=== PATIENT | male | born 1960 | race Caucasian/White ===

== ENCOUNTER 2024-09-08 17:06 | Emergency (ER) | payer MEDICARE, SELFPAY ==
[2024-09-08] VITALS (19 sets, daily range): BP systolic 91–134; BP diastolic 60–79; PULSE 82–108; RESP 12–25; TEMP 36–36.8; O2SAT 91–101
--- NOTE | ~2024-09-08 | XR_ITS ---
XR chest 1V portable Ordering provider: Saida Espinoza APRN History: 64 years Male with . shortness of breath . Comparison: None. FINDINGS: MEDIASTINUM: The cardiac silhouette is not enlarged. Small sliding hiatus hernia. LUNGS: No infiltrates, effusions or pneumothorax. OTHER: No free air under the diaphragm. IMPRESSION: No acute cardiopulmonary pathology. Reviewed, dictated and finalized at location A.
--- NOTE | ~2024-09-08 | CT_ITS ---
Clinical Indication: Shortness of breath CT Scan of the Chest with Contrast: Technique: Contiguous sections were acquired throughout the chest after intravenous administration of 100 cc of Omnipaque 350. Dose reduction technique was used on this scan by utilizing automated expos ure control and iterative reconstruction technique. The dose-length product (DLP) was 379.22 mGy-cm. Findings: There is no evidence of any significant mediastinal, hilar or axillary lymphadenopathy. No definite l arge central pulmonary embolus. Timing of the bolus is suboptimal for evaluation for smaller, more di stal pulmonary emboli.. There is no evidence of aortic dissection or aneurysm. There is no evidence of pleural or pericardial effusion. 4 mm left basilar pulmonary nodule present (axial image 113). Additional 3 mm left lower lobe pulmona ry nodule present peripherally (axial image 103).. Moderate emphysema present. Images through the upper abdomen reveal moderate hiatal hernia. Left hepatic lobe cyst present. Impression: No large central pulmonary embolus. Suboptimal timing of contrast bolus limits evaluation for smaller , more distal pulmonary emboli. Subcentimeter pulmonary nodules, most likely benign. Consider 12 month follow-up exam for a high-risk patient. Moderate emphysema. Moderate hiatal hernia. Reviewed, dictated and finalized at location . Impression: No large central pulmonary embolus. Suboptimal timing of contrast bolus limits evaluation for smaller, more distal pulmonary emboli. Subcentimeter pulmonary nodules, most likely benign. Consider 12 month follow-u p exam for a high-risk patient. Moderate emphysema. Moderate hiatal hernia.
--- OUTSIDE RECORDS SUMMARY | 2024-09-08 17:08 | XMS_ITS | Referral Summary ---
Author Organization [facility] Address [address] [place] [address] Care Team Providers Care Bulldozer Mechanic Name Role Phone Deejay Styles MD Unavailable [phone] Encounters Date Type Department Care Team Description 07/05/2024 1:07 PM CDT - 07/06/2024 2:00 PM CDT Hospital Encounter [facility] [address] [place] [id number] Fantasma Burnett MD Wallace, MD Didier Swift, MD Mason Pierre Ahmad, MD Freilich, MD Glo Love, Dalila Flores MD Exacerbation of asthma, unspecified asthma severity, unspecified whether persistent (Primary Dx); Shortness of breath; Alcohol abuse; CRUMP (dyspnea on exertion); Mixed conductive and sensorineural hearing loss, bilateral Discharge Disposition: Discharge to home or self care from Last 3 Months Allergies Active Allergy Reactions Criticality Noted Date Comments Clindamycin Edema Reaction: SWELLING, Medications albuterol HFA (PROVENTIL HFA,VENTOLIN HFA,PROAIR HFA) 90 mcg/actuation inhaler Inhale 2 puffs every 4 (four) hours as needed for wheezing 1 each 1 07/06/2024 Active fluticasone furoate-vilante roL (BREO ELLIPTA) 200-25 mcg/dose diskus inhaler Inhale 1 puff daily for 3 days Rinse mouth with water after use. Do not swallow. 3 each 07/07/2024 Active buPROPion (WELLBUTRIN) 100 mg tablet Take 1 tablet (100 mg total) by mouth 2 (two) times a day 07/06/2024 07/07/19 26 Active Active Problems Problem Noted Date Diagnosed Date Exacerbation of asthma, unsp ecified asthma severity, unspecified whether persistent 07/05/2024 Assessment & Plan (07/06/2024 12:25 PM CDT): -2 weeks of progressive SOB iso 1.pt ran out of his inhalers, 2. continues to use vamping, 3. Triggering allergins in his new detention ( reports breathing worse since moving to new detention in March) -admitted for asthma exacerbation -was given nebs, started on steroids -pt reports breathing is back to baseline, C/w Breoellipta and steroids x 4 days -educated on vaping cessation -discussed need to follow up with PCP, referral to [facility] placed -ready for discharge Homelessness 03/05/2024 Assessment & Plan (03/05/2024 2:44 PM CYCLE SPECIALIST): SW helped provide resources for detention (see note on 03/04) Moderate protein-calorie malnutrition 03/03/2024 Dehydration 03/01/2024 Assessment & Plan (03/03/2024 4:59 PM CYCLE SPECIALIST): Pt with mild hyponatremia and AGMA related to lactic acidosis/starvation ketosis, expect from dehydration and etoh use. Resolved and now tolerating PO intake without issue. Suicidal ideation 03/01/2024 Assessment & Plan (03/05/2024 2:44 PM CYCLE SPECIALIST): Presented to [facility] with SI, has multiple thoughts of ending his life each day for the past several days, such as jumping in the river. Homeless for several years, most recently in a motel which he will be unable to stay at further now, also complicated by AUD. - Low utility for 1:1 sitter at this time, defer - continue low risk suicide precautions and elopement precautions however. - Psych consult - Initial plan for voluntary admission however stated given the conditional nature of his suicidality related to being homeless, patient would no longer be recommended for psych transfer - has provided resources for shelters including extended motel accomodations (see WHEEL WORKER note on 03/04) Alcohol abuse 03/01/2024 Assessment & Plan (03/05/2024 2:42 PM CYCLE SPECIALIST): Drinks 1/5 daily of vodka, which he reports ot have done for years. Presented with mild alcoholic ketosis, which resolved after IVF resuscitation by 03/02. No withdrawal sx hx, but he also reports he doesn't know the last time he hasn't had alcohol. Last drink 02/28. Denies any other substance use and UDS negative. CIWA since admission was 0 without any concerns for withdrawal, so on 03/02 CIWA orders discontinued. Patient tolerating PO intake, medically improved. - Discontinued CIWA 03/02 - Thiamine/Folate - HIV/HCV testing negative 03/01 - Seen by chemical dependency provided resources and sent referrals to residential treatments centers, [facility] and places for people, [facility] (See WHEEL WORKER notes on 03/04) CRUMP (dyspnea on exertion) 06/25/2023 Assessment & Plan (06/25/2023 4:48 PM CDT): His EKG today in clinic was NSR no acute changes. He does have ongoing CRUMP and a negative stress test in 2019. However, CRUMP could be his anginal equivalent, multiple risk factors for CAD, HTN, tobacco abuse vs COPD. Follow up with PCP for PFTS. ECHO to rue out any valvular reason for CRUMP-CMY- in light of his heavy ETOH abuse. Stress ECHO. Lipid profile. I asked that he check his BP at home, it was elevated in clinic today and follow up with his PCP. Follow up with Dr. Ellis in 3 months. Cholesteatoma of right ear 03/19/2023 Mixed conductive and sensorineural hearing loss, bilateral 03/19/2023 Impacted cerumen of right ear 03/19/2023 Asthma 03/27/2017 Assessment & Plan (03/01/2024 9:23 AM CYCLE SPECIALIST): Unclear hx, he is not sure either. Has been prescribe albuterol in past and symbicort - will resume prn albuterol, no respiratoy sx at this time Elevated liver enzymes 02/22/2017 Abnormal liver function tests 10/09/2016 Mixed hearing loss 06/12/2016 Assessment & Plan (03/01/2024 9:23 AM CYCLE SPECIALIST): Pt reports to have been near deaf entire life, he communicates via writing or a voice tyler effectively. Does not know sign language Social History Tobacco Use Types Packs/Day Years Used Date Smoking Tobacco: Former Smokeless Tobacco: Current Chew Tobacco Cessation:Ready to Q uit: Not Asked; Counseling Given: Not Answered AUDIT-C Answer Date Recorded Q1: How often do you have a drink containing alcohol? 4 or more times a week 08/09/2022 Q2: How many drinks containi ng alcohol do you have on a typical day when you are drinking? 5 or 6 Q3: How often do you have si x or more drinks on one occasion? Daily or almost daily 08/09/2022 Hunger Vital Sign Answer Date Recorded Within the past 12 months, y ou worried that your food would run out before you got the money to buy more. Often true 08/10/19 23 Within the past 12 months, t he food you bought just didn't last and you didn't have money to get more. Often true 08/09/2022 Personal Safety Answer Date Recorded Have you ever been in or are you currently in a harmful physical or emotional relationship or is someone making you feel afraid or unsafe? Denies 07/05/2024 Sex and Gender Information Value Date Recorded Sex Assigned at Not on file Legal Sex Male 2:58 AM CYCLE SPECIALIST Gender Identity Not on file Sexual Orientation Not on file Last Filed Vital Signs Vital Sign Reading Time Taken Comments Blood Pressure 128/85 07/06/2024 9:58 AM CDT Pulse 88 07/06/2024 9:58 AM CDT Temperature 36.4 C (97.5 F) 07/06/2024 9:58 AM CDT Respiratory Rate 18 07/06/2024 9:58 AM CDT Oxygen Saturation 99% 07/06/2024 9:58 AM CDT Inhaled Oxygen Concentration - - Weight 70.8 kg (156 lb 1.6 oz) 07/05/2024 10:03 PM CDT Height 177.8 cm (5' 10) 07/05/2024 10:58 PM CDT Body Mass Index 22.4 07/05/2024 10:03 PM CDT Plan of Treatment Not on file Procedures Procedure Name Priority Date/Time Associated Diagnosis Comments EGFR Routine 07/06/2024 5:46 AM CDT DIFFERENTIAL AUTO Routine 07/06/2024 5:4 6 AM CDT CBC WITH AUTO DIFFERENTIAL Routine 07/06/2024 5:46 AM CDT BASIC METABOLIC PANEL Routine 07/06/2024 5:46 AM CDT DRUGS OF ABUSE SCREEN, URINE WITH REFLEX CONFIRMATION Routine 07/06/2024 4:37 AM CDT TROPONIN I HIGH-SENSITIVITY 2-HOUR Timed 07/05/2024 3:33 PM CDT RESPIRATORY PATHOGEN PANEL STAT 07/05/2024 2:04 PM CDT XR CHEST PA LATERAL 2 VIEWS ED 07/05/2024 2:00 PM CDT ECG 12-LEAD Routine 07/05/2024 1:57 PM CDT EGFR STAT 07/05/2024 1:33 PM CDT DIFFERENTIAL AUTO STAT 07/05/2024 1: 33 PM CDT TROPONIN I HIGH-SENSITIVITY SERIES (BASELINE, 2HR, 4HR, 6HR) STAT 07/05/2024 1:33 PM CDT CBC WITH AUTO DIFFERENTIAL STAT 07/05/2024 1:33 PM CDT COMPREHENSIVE METABOLIC PANEL STAT 07/05/2024 1:33 PM CDT HEPATITIS C ANTIBODY Routine 03/01/2024 8:53 PM CYCLE SPECIALIST from Last 3 Months or Most Recently Relevant to Health Maintenance Results * eGFR (07/06/2024 5:46 AM CDT) Pathologist [facility] eGFR >90 >=60 mL/min/1. 73 m2 Comment: Interpretive Data Reference Interval Normal >/= 90 mL/min/1.73m2 Mildly decreased* 60 - 89 mL/min/1.73m2 Mildly to moderately decreased 45 - 59 mL/min/1.73m2 Moderately to severely decreased 30 - 44 mL/min/1.73m2 Severely decreased 15 - 29 mL/min/1.73m2 Kidney Failure < 15 mL/min/1.73m2 *Relative to young adult level Estimated glomerular filtration rate is determined by the 2020 CKD-EPI equation recommended by the National Kidney Foundation (A Unifying Approach to GFR Estimation: Recommendations of the NKF-ASK Task Force on Reassessing the Inclusion of Race in Diagnosing Kidney Disease, JASN 2020). The CKD-EPI equation should not be used for patients with unstable renal function and has not been validated in children and those over 70. Current interpretive data was last reviewed 2021. Blood 07/06/2024 5:46 AM CDT 07/06/2024 6:01 AM CDT us Sandra Cuevas MD LAB BLOOD ORDERABLES Final Resu lt [facility] Department [place] [address] * (ABNORMAL) Differential, auto (07/06/2024 5:46 AM CDT) Pathologist [facility] Neutrophil abs 11.2(H) 1.5 - 6.5 K/cumm Imm gran abs 0.1 0.0 - 0.1 K/cumm [facility] Lymphocyte abs 1.1 0.8 - 3.3 K/cumm [facility] Monocyte abs 0.9(H) 0.2 - 0.8 K/cumm [facility] Eosinophil abs 0.1 0.0 - 0.5 K/cumm [facility] Basophil abs 0.0 0.0 - 0.1 K/cumm [facility] Neutrophil pct 83.4 % [facility] Comment: Interpretive Data Percent cell count reference ranges are not reported, since discordance with absolute values may lead to misinterpretation of CBC data. Current Interpretive Data was last revised on 2017. Imm gran pct 0.6 % [facility] Comment: Interpretive Data Percent cell count reference ranges are not reported, since discordance with absolute values may lead to misinterpretation of CBC data. Current Interpretive Data was last revised on 2017. Lymphocyte pct 8.3 % [facility] Comment: Interpretive Data Percent cell count reference ranges are not reported, since discordance with absolute values may lead to misinterpretation of CBC data. Current Interpretive Data was last revised on 2017. Monocyte pct 6.7 % [facility] Comment: Interpretive Data Percent cell count reference ranges are not reported, since discordance with absolute values may lead to misinterpretation of CBC data. Current Interpretive Data was last revised on 2017. Eosinophil pct 0.7 % [facility] Comment: Interpretive Data Percent cell count reference ranges are not reported, since discordance with absolute values may lead to misinterpretation of CBC data. Current Interpretive Data was last revised on 2017. Basophil pct 0.3 % [facility] Comment: Interpretive Data Percent cell count reference ranges are not reported, since discordance with absolute values may lead to misinterpretation of CBC data. Current Interpretive Data was last revised on 2017. Blood 07/06/2024 5:46 AM CDT 07/06/2024 6:01 AM CDT us Sandra Cuevas MD LAB BLOOD ORDERABLES Final Resu lt [facility] Department [place] [address] * (ABNORMAL) CBC with auto differential (07/06/2024 5:46 AM CDT) WBC 13.4(H) 3.8 - 9.9 K/cumm Hgb 11.9(L) 13.0 - 17.5 g/dL [facility] Hct 35.0(L) 38.9 - 50.3 % [facility] Plt 338 150 - 400 K/cumm [facility] MPV 9.1 9.1 - 12.3 fL [facility] RBC 3.93(L) 4.30 - 5.80 M/cumm [facility] MCV 89.1 81.3 - 96.4 fL [facility] MCH 30.3 27.1 - 33.3 pg [facility] MCHC 34.0 32.3 - 35.7 g/dL [facility] RDW CV 14.2 11.1 - 14.9 % [facility] RDW SD 46.3 35.7 - 48.1 fL [facility] NRBC abs 0.00 0.00 - 0.01 K/cumm [facility] Blood 07/06/2024 5:46 AM CDT 07/06/2024 6:01 AM CDT us Sandra Cuevas MD LAB BLOOD ORDERABLES Final Resu lt [facility] Department [place] [address] * (ABNORMAL) Basic metabolic panel (07/06/2024 5:46 AM CDT) Sodium 140 135 - 145 mmol/L Potassium, pl 4.5 3.3 - 4.9 mmol/L [facility] Chloride 107 97 - 110 mmol/L [facility] CO2 24 22 - 32 mmol/L [facility] Anion gap 9 2 - 15 mmol/L [facility] BUN 12 6 - 25 mg/dL [facility] Creatinine 0.70(L) 0.80 - 1.30 mg/dL [facility] Glucose 143 70 - 199 mg/dL [facility] Comment: Interpretive Data Fasting glucose >/= 126 mg/dl is diagnostic for diabetes. Fasting is defined as no caloric intake for at least 8 hours. Fasting glucose between 100 mg/dl to 125 mg/dl is diagnostic of prediabetes. In a patient with classic symptoms of hyperglycemia or hyperglycemic crisis, a random glucose >/= 200 mg/dl is diagnostic for diabetes. In the absence of unequivocal hyperglycemia, results should be confirmed by repeat testing. The classification and Diagnosis of Diabetes Diabetes Care 2021; 46: S19-S40. Current interpretive data was last revised 2022. Calcium 8.9 8.5 - 10.3 mg/dL [facility] Blood 07/06/2024 5:46 AM CDT 07/06/2024 6:01 AM CDT us Sandra Cuevas MD LAB BLOOD ORDERABLES Final Resu lt [facility] Department [place] [address] * (ABNORMAL) Drugs of Abuse Screen, Urine with Reflex Confirmation (07/06/2024 4:37 AM CDT) Pathologist [facility] Amphetamine, ur Not Detected CutOff 500ng/mL Comment: Interpretive Data - Amphetamines: Samples containing greater than 500 ng/mL d-methamphetamine or other cross-reacting amphetamine compounds are reported as positive. Amphetamine immunoassays are subject to significant false positive rates due to cross-reactivity of non-amphetamine drugs. Confirmatory testing required for definitive results. Current Interpretive Data was last reviewed 2022. Barbiturates, ur Not Detected CutOff 200ng/mL [facility] Comment: Interpretive Data - Barbiturates: Samples containing greater than 200 ng/mL secobarbital or other cross-reacting barbiturate compounds are reported as positive. False positive and false negative results are possible. Confirmatory testing required for definitive results. Current Interpretive Data was last reviewed 2022. Benzodiazepines, ur Not Detected CutOff 100ng/mL [facility] Comment: Interpretive Data - Benzodiazepines: Samples containing greater than 100 ng/mL nordiazepam or other cross-reacting compounds are reported as positive. False positive and false negative results are possible. Confirmatory testing required for definitive results. Current Interpretive Data was last reviewed 2022. Cannabinoids, ur Screen Positive, presumptive (A) CutOff 50 ng/mL [facility] Comment: Interpretive Data - Cannabinoids: Samples containing greater than 50 ng/mL delta-9 THC -COOH or other cross- reacting compounds are reported as positive. False positive and false negative results are possible. Confirmatory testing required for definitive results. Current Interpretive Data was last reviewed 2022. Cocaine, ur Not Detected CutOff 150ng/mL [facility] Comment: Interpretive Data - Cocaine: Samples containing greater than 150 ng/mL benzoylecgonine or other cross- reacting compounds are reported as positive. False positive and false negative results are possible. Confirmatory testing required for definitive results. Current Interpretive Data was last reviewed 2022. Fentanyl, Ur Not Detected CutOff 5 ng/mL [facility] Comment: Interpretive Data - Fentanyl: Samples containing greater than 5 ng/mL norfentanyl, fentanyl, or other cross-reacting fentanyl compounds are reported as positive. False positive and false negative results are possible. Confirmatory testing required for definitive results. Current Interpretive Data was last reviewed 2023. Methadone, ur Not Detected CutOff 300ng/mL [facility] Comment: Interpretive Data - Methadone: Samples containing greater than 300 ng/mL d,l-methadone or other cross-reacting compounds are reported as positive. False positive and false negative results are possible. Confirmatory testing required for definitive results. Current Interpretive Data was last reviewed 2022. Opiates, ur Not Detected CutOff 300ng/mL [facility] Comment: Interpretive Data - Opiates: Samples containing greater than 300 ng/mL morphine or other cross-reacting compounds are reported as positive. False positive and false negative results are possible. Confirmatory testing required for definitive results. Current Interpretive Data was last reviewed 2022. Oxycodone, ur Not Detected CutOff 100ng/mL [facility] Comment: Interpretive Data - Oxycodone: Samples containing greater than 100 ng/mL oxycodone or other cross-reacting compounds are reported as positive. False positive and false negative results are possible. Confirmatory testing required for definitive results. Current Interpretive Data was last reviewed 2022. Phencyclidine, ur Not Detected CutOff 25 ng/mL [facility] Comment: Interpretive Data - Phencyclidine: Samples containing greater than 25 ng/mL phencyclidine or other cross-reacting compounds are reported as positive. False positive and false negative results are possible. Confirmatory testing required for definitive results. Current Interpretive Data was last reviewed 2022. Urine Creatinine 79 mg/dL [facility] Comment: Interpretive Data Urine Creatinine: < 10 mg/dL is extremely dilute = or > 10 but < 20 mg/dL is dilute = or > 20 mg/dL is normal Current Interpretive Data was last revised on 2017. Urine 07/06/2024 4:37 AM CDT 07/06/2024 4:50 AM CDT Narrative [facility] - 07/06/2024 5:21 AM CDT Drug of Abuse screening is performed by immunoassay for medical purposes only. This is not to be used for Pain Management purposes. If Detected, confirmation testing will be performed for Amphetamines, Cocaine, Fentanyl, Methadone, Opiates, Oxycodone or Phencyclidine. Sandra Cuevas MD LAB URINE ORDERABLES Final Resu lt Performing Organization Address [facility] Co de Phone Number [facility] Department [place] [address] * Troponin I high-sensitivity 2-hour (07/05/2024 3:33 PM CDT) Trop I hs <4 <=35 ng/L Comment: Interpretive Data For further hscTnI resources including the diagnostic algorithm and an aid in interpretation, copy and paste this link: https://bjhlab.testcatalog.org/show/[email or web address] Current Interpretive Data last revised 2019. Trop I hs delta 0 ng/L [facility] Trop I hs interp Insignificant [facility] Blood 07/05/2024 3:33 PM CDT 07/05/2024 3:43 PM CDT Zakiya Lopez MD LAB BLOOD ORDERABLES Fin al Result Performing Organization Address [facility]/ZIP Co de Phone Number [facility] Department [place] [address] * Respiratory pathogen panel Nasopharyngeal (07/05/2024 2:04 PM CDT) Pathologist [facility] Influenza A RNA Not Detected Not Detected Influenza B RNA Not Detected Not Detected [facility] RSV RNA Not Detected Not Detected [facility] COVID-19 RNA Not Detected Not Detected [facility] Coronavirus 229E RNA Not Detected Not Detected [facility] Coronavirus HKU1 RNA Not Detected Not Detected [facility] Coronavirus NL63 RNA Not Detected Not Detected [facility] Coronavirus OC43 RNA Not Detected Not Detected [facility] Adenovirus DNA Not Detected Not Detected [facility] Metapneumovirus RNA Not Detected Not Detected [facility] Rhinovirus/Enterov irus RNA Not Detected Not Detected [facility] Parainfluenza 1 RNA Not Detected Not Detected [facility] Parainfluenza 2 RNA Not Detected Not Detected [facility] Parainfluenza 3 RNA Not Detected Not Detected [facility] Parainfluenza 4 RNA Not Detected Not Detected [facility] B. pertussis DNA Not Detected Not Detected [facility] B. parapertussis DNA Not Detected Not Detected [facility] C. pneumoniae DNA Not Detected Not Detected [facility] M. pneumoniae DNA Not Detected Not Detected [facility] Nasopharyngeal 07/05/2024 2: 04 PM CDT 07/05/2024 2:12 PM CDT Narrative [facility] - 07/05/2024 3:43 PM CDT Is the Patient experiencing symptoms consistent with COVID?->Yes Surveillance testing for transplant patient?->No Interpretive Data The [employer] FilmArray Respiratory Panel (RP2.1) assay is a multiplexed real-time PCR based nucleic acid test capable of simultaneous qualitative detection and identification of multiple respiratory viral and bacterial nucleic acids, including SARS Coronavirus 2 (the causative agent of COVID-19). The following bacteria, viruses and virus subtypes can be identified using the FilmArray RP2.1 assay: Bordetella pertussis, Bordetella parapertussis, Chlamydia pneumoniae, Mycoplasma pneumoniae, Adenovirus, SARS Coronavirus 2, seasonal coronaviruses (Coronavirus HKU1, Coronavirus NL63, Coronavirus 229E, and Coronavirus OC43), Influenza A, Influenza A subtype H1, Influenza A subtype H3, Influenza A subtype 2009 H1, Influenza B, Metapneumovirus, Parainfluenza 1, Parainfluenza 2, Parainfluenza 3, Parainfluenza 4, RSV, Rhinovirus/Enterovirus. Due to the genetic similarity between human Rhinovirus and Enterovirus, the FilmArray RP2.1 assay cannot reliably differentiate them. Coronavirus OC43 may cross-react with some isolates of Coronavirus HKU1. A dual positive result may be due to cross-reactivity or may indicate a co- infection. The detection and identification of specific viral and bacterial nucleic acids from individuals exhibiting signs and symptoms of a respiratory infection aids in the diagnosis of respiratory infection if used in conjunction with other clinical and epidemiological information. The results of this test should not be used as the sole basis for diagnosis, treatment, or other management decisions. Negative results in the setting of a respiratory illness may be due to infection with pathogens that are not detected by this test. Positive results do not rule out infection/co-infection with other organisms. The agent(s) detected by the FilmArray RP2.1 may not be the definite cause of disease. Additional testing (lab, imaging, etc.) may be necessary when evaluating a patient with possible respiratory tract infection. The FilmArray RP2.1 assay has FDA clearance for testing of AUTOMOTIVE MANUFACTURER swabs. The performance of additional specimen types has been assessed by the performing laboratory. The performance characteristics of this assay have been determined by [facility] Molecular Infectious Disease Laboratory. Current interpretive data was last revised on 22. Zakiya Lopez MD LAB MICROBIOLOGY - [facility] ORDERABLES Final Result [facility] Department [place] [address] * XR Chest PA Lateral 2 Views (07/05/2024 2:00 PM CDT) Anatomical Region Laterality Modality Body, Chest N/A Computed Radiogr aphy 07/05/2024 2:11 PM CDT Impressions 07/05/2024 2:15 PM CDT The current study is compared with the prior radiograph dated 01/21/2007 . Minimal bibasilar airspace opacities likely represent atelectasis. No focal pneumonic consolidation. No pleural effusion or pneumothorax. Cardiomediastinal silhouette is within normal limits. Moderate hiatal hernia with air-fluid level is noted. Dictated by: Calos Faria MD The radiology attending physician has personally reviewed this study, and had reviewed and/or edited this written report and agrees with it. Electronically signed by: Amarjit Roger MD, PHD Narrative 07/05/2024 2:15 PM CDT EXAMINATION: 2 view chest radiograph Procedure Note Amarjit Roger MD PhD - 07/05/2024 EXAMINATION: 2 view chest radiograph IMPRESSION: The current study is compared with the prior radiograph dated 01/21/2007 . Minimal bibasilar airspace opacities likely represent atelectasis. No focal pneumonic consolidation. No pleural effusion or pneumothorax. Cardiomediastinal silhouette is within normal limits. Moderate hiatal hernia with air-fluid level is noted. Dictated by: Calos Faria MD The radiology attending physician has personally reviewed this study, and had reviewed and/or edited this written report and agrees with it. Electronically signed by: Amarjit Roger MD, PHD us Fantasma Burnett MD IMG XR PROCEDURES Final Re sult * ECG 12-LEAD (07/05/2024 1:57 PM CDT) Narrative [facility] - 07/05/2024 1:57 PM CDT Fantasma Burnett MD 07/05/2024 1:57 PM ECG 12 lead Date/Time: 07/05/2024 1:57 PM Performed by: Fantasma Burnett MD Authorized by: Fantasma Burnett MD Rate: ECG rate: 106 ECG rate assessment: tachycardic Rhythm: Rhythm: sinus rhythm Ectopy: Ectopy: none QRS: QRS axis: Left QRS intervals: Normal Conduction: Conduction: normal ST segments: ST segments: Normal T waves: T waves: non-specific Previous ECG: Previous ECG: Compared to current Similarity: No change Interpretation: Interpretation: No acute injury pattern Recommended Follow-up: Recommended follow up: further workup in the ED Procedure Note Fantasma Burnett MD - 07/05/2024 1:57 PM CDT Procedure ECG 12 lead Date/Time: 07/05/2024 1:57 PM Performed by: Fantasma Burnett MD Authorized by: Fantasma Burnett MD Rate: ECG rate: 106 ECG rate assessment: tachycardic Rhythm: Rhythm: sinus rhythm Ectopy: Ectopy: none QRS: QRS axis: Left QRS intervals: Normal Conduction: Conduction: normal ST segments: ST segments: Normal T waves: T waves: non-specific Previous ECG: Previous ECG: Compared to current Similarity: No change Interpretation: Interpretation: No acute injury pattern Recommended Follow-up: Recommended follow up: further workup in the ED Fantasma Burnett MD 07/05/24 [id number] us Fantasma Burnett MD ECG ORDERABLES Final Resu lt [facility] * Troponin I high-sensitivity series (baseline, 2hr, 4hr, 6hr) (07/05/2024 1:33 PM CDT) [facility] Trop I hs <4 <=35 ng/L Comment: Interpretive Data For further hscTnI resources including the diagnostic algorithm and an aid in interpretation, copy and paste this link: [email or web address] Current Interpretive Data last revised 2019. Blood 07/05/2024 1:33 PM CDT 07/05/2024 1:37 PM CDT us Fantasma Burnett MD LAB BLOOD ORDERABLES Final Result [facility] [place] [address] * eGFR (07/05/2024 1:33 PM CDT) [facility] eGFR >90 >=60 mL/min/1. 73 m2 Comment: Interpretive Data Reference Interval Normal >/= 90 mL/min/1.73m2 Mildly decreased* 60 - 89 mL/min/1.73m2 Mildly to moderately decreased 45 - 59 mL/min/1.73m2 Moderately to severely decreased 30 - 44 mL/min/1.73m2 Severely decreased 15 - 29 mL/min/1.73m2 Kidney Failure < 15 mL/min/1.73m2 *Relative to young adult level Estimated glomerular filtration rate is determined by the 2020 CKD-EPI equation recommended by the National Kid[employer] (A Unifying Approach to GFR Estimation: Recommendations of the NKF-ASK Task Force on Reassessing the Inclusion of Race in Diagnosing Kidney Disease, JASN 2020). The CKD-EPI equation should not be used for patients with unstable renal function and has not been validated in children and those over 70. Current interpretive data was last reviewed 2021. Blood 07/05/2024 1:33 PM CDT 07/05/2024 1:39 PM CDT us Zakiya Lopez MD LAB BLOOD ORDERABLES Fin al Result [facility] Department of Laboratories [place], [place] [id number] * (ABNORMAL) Differential, auto (07/05/2024 1:33 PM CDT) Neutrophil abs 5.4 1.5 - 6.5 K/cumm Imm gran abs 0.0 0.0 - 0.1 K/cumm [facility] Lymphocyte abs 1.4 0.8 - 3.3 K/cumm [facility] Monocyte abs 0.7 0.2 - 0.8 K/cumm [facility] Eosinophil abs 1.2(H) 0.0 - 0.5 K/cumm [facility] Basophil abs 0.1 0.0 - 0.1 K/cumm [facility] Neutrophil pct 60.6 % [facility] Comment: Interpretive Data Percent cell count reference ranges are not reported, since discordance with absolute values may lead to misinterpretation of CBC data. Current Interpretive Data was last revised on 2017. Imm gran pct 0.5 % [facility] Comment: Interpretive Data Percent cell count reference ranges are not reported, since discordance with absolute values may lead to misinterpretation of CBC data. Current Interpretive Data was last revised on 2017. Lymphocyte pct 15.9 % [facility] Comment: Interpretive Data Percent cell count reference ranges are not reported, since discordance with absolute values may lead to misinterpretation of CBC data. Current Interpretive Data was last revised on 2017. Monocyte pct 8.2 % [facility] Comment: Interpretive Data Percent cell count reference ranges are not reported, since discordance with absolute values may lead to misinterpretation of CBC data. Current Interpretive Data was last revised on 2017. Eosinophil pct 13.7 % [facility] Comment: Interpretive Data Percent cell count reference ranges are not reported, since discordance with absolute values may lead to misinterpretation of CBC data. Current Interpretive Data was last revised on 2017. Basophil pct 1.1 % [facility] Comment: Interpretive Data Percent cell count reference ranges are not reported, since discordance with absolute values may lead to misinterpretation of CBC data. Current Interpretive Data was last revised on 2017. Blood 07/05/2024 1:33 PM CDT 07/05/2024 1:37 PM CDT us Fantasma Burnett MD LAB BLOOD ORDERABLES Final Result Performing Organization Address City/State/[facility] Co de Phone Number [facility] Department [place] [address] * CBC with auto differential (07/05/2024 1:33 PM CDT) WBC 8.9 3.8 - 9.9 K/cumm Hgb 13.8 13.0 - 17.5 g/dL [facility] Hct 40.5 38.9 - 50.3 % [facility] Plt 370 150 - 400 K/cumm [facility] MPV 9.1 9.1 - 12.3 fL [facility] RBC 4.53 4.30 - 5.80 M/cumm [facility] MCV 89.4 81.3 - 96.4 fL [facility] MCH 30.5 27.1 - 33.3 pg [facility] MCHC 34.1 32.3 - 35.7 g/dL [facility] RDW CV 13.9 11.1 - 14.9 % [facility] RDW SD 45.7 35.7 - 48.1 fL [facility] NRBC abs 0.00 0.00 - 0.01 K/cumm [facility] Blood 07/05/2024 1:33 PM CDT 07/05/2024 1:37 PM CDT us Fantasma Burnett MD LAB BLOOD ORDERABLES Final Result [facility] Department [place] [address] * (ABNORMAL) Comprehensive metabolic panel (07/05/2024 1:33 PM CDT) Pathologist [facility] Sodium 141 135 - 145 mmol/L Potassium, pl 4.3 3.3 - 4.9 mmol/L [facility] Chloride 102 97 - 110 mmol/L [facility] CO2 26 22 - 32 mmol/L [facility] Anion gap 13 2 - 15 mmol/L [facility] BUN 8 6 - 25 mg/dL [facility] Creatinine 0.70(L) 0.80 - 1.30 mg/dL [facility] Glucose 130 70 - 199 mg/dL [facility] Comment: Interpretive Data Fasting glucose >/= 126 mg/dl is diagnostic for diabetes. Fasting is defined as no caloric intake for at least 8 hours. Fasting glucose between 100 mg/dl to 125 mg/dl is diagnostic of prediabetes. In a patient with classic symptoms of hyperglycemia or hyperglycemic crisis, a random glucose >/= 200 mg/dl is diagnostic for diabetes. In the absence of unequivocal hyperglycemia, results should be confirmed by repeat testing. The classification and Diagnosis of Diabetes Diabetes Care 2021; 46: S19-S40. Current interpretive data was last revised 2022. Calcium 9.3 8.5 - 10.3 mg/dL [facility] Bilirubin, total 0.2 0.1 - 1.2 mg/dL [facility] Protein, pl 7.8 6.5 - 8.5 g/dL [facility] Albumin 4.0 3.5 - 5.0 g/dL [facility] Alk phos 115 40 - 130 Units/L [facility] ALT 10 7 - 55 Units/L [facility] AST 23 10 - 50 Units/L [facility] Blood 07/05/2024 1:33 PM CDT 07/05/2024 1:37 PM CDT us Fantasma Burnett MD LAB BLOOD ORDERABLES Final Result [facility] Department [place] [address] * Hepatitis C antibody Blood (03/01/2024 8:53 PM CY[facility] SPECIALIST) Hep C Ab Nonreactive Nonreactive Comment:Antibodies to HCV no t detected. Does NOT exclude the possibility of recent exposure to HCV. Current interpretive data was last revised on 21 Blood 03/01/2024 8:53 PM [facility]CLE SPECIALIST 03/01/2024 9:16 PM [facility]IST us Garcia Limon MD LAB MICROBIOLOGY - GENERAL ORD ERABLES Final Result [facility] Department of Laboratories [place], [place] [id number] from Last 3 Months or Most Recently Relevant to Health Maintenance Insurance [place] Advance Directives For more information, please contact: [phone] * Full Code (Latest Code Status on File) Date Activated Date Inactivated Comments 07/05/2024 10:03 PM 07/06/2024 6:11 PM * Full Code Date Activated Date Inactivated Comments 03/01/2024 9:16 AM 03/06/2024 10:04 AM 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
--- OUTSIDE RECORDS SUMMARY | 2024-09-08 17:09 | XMS_ITS | Clinical Summary ---
Author Organization [facility] al Address [address] [place] [address] Care Team Providers Care Rotor Blade Installer Name Role Phone Deejay Styles MD Unavailable [phone] Allergies Active Allergy Reactions Criticality Noted Date [...] vamping, 3. Triggering allergins in his new senior care ( reports breathing worse since moving to [facility] in March) -admitted for asthma exacerbation -was given nebs, started on steroids -pt reports breathing is back to baseline, C/w Breoellipta and steroids x 4 days -educated on vaping cessation -discussed need to follow up with PCP, referral to [facility] placed -ready for discharge Homelessness 03/05/2024 Assessment & Plan (03/05/2024 2:44 PM ULTRASOUND SUPERVISOR): SW helped provide resources for senior care (see note on 03/04) Moderate protein-calorie malnutrition 03/03/2024 Dehydration 03/01/2024 Assessment & Plan (03/03/2024 4:59 PM ULTRASOUND SUPERVISOR): Pt with mild hyponatremia and AGMA related to lactic acidosis/starvation ketosis, expect from dehydration and etoh use. Resolved and now tolerating PO intake without issue. Suicidal ideation 03/01/2024 Assessment & Plan (03/05/2024 2:44 PM ULTRASOUND SUPERVISOR): Presented to Ed with SI, has multiple [...] for shelters including extended motel accomodations (see SHEET ROCK FINISHER note on 03/04) Alcohol abuse 03/01/2024 Assessment & Plan (03/05/2024 2:42 PM ULTRASOUND SUPERVISOR): Drinks 1/5 daily of vodka, which he [...] negative 03/01 - Seen by chemical dependency SW provided resources and sent referrals to residential treatments centers, [facility] and places for people, [facility] (See SHE[employer] ROCK FINISHER notes on 03/04) CRUMP (dyspnea on exertion) [...] 03/27/2017 Assessment & Plan (03/01/2024 9:23 AM ULTRASOUND SUPERVISOR): Unclear hx, he is not sure either. 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 Does not know sign language Encounters Date Type Department Care Team Description 07/05/2024 1:07 PM CDT - 07/06/2024 2:00 PM CDT Hospital Encounter [facility] [address] [place] [address] Fantasma Burnett MD Wallace, MD Didier Swift, MD Mason Pierre Ahmad, MD Freilich, MD Glo Love, Dalila Flores MD Exacerbation of asthma, unspecified asthma severity, unspecified whether persistent (Primary Dx); Shortness of breath; Alcohol abuse; CRUMP (dyspnea on exertion); Mixed conductive and sensorineural hearing loss, bilateral Discharge Disposition: Discharge to home or self care from Last 3 Months Surgical History Surgery Date Site/Laterality Comments MI APPENDECTOMY Appendectomy - (Added by TW Conv) Medical History Medical History Date Comments Allergy status to unspecifie d drugs, medicaments and biological substances status History of seasonal allergie s - (Added by TW Conv) Personal history of other di seases of the respiratory system History of asthma - (Added b y TW Conv) Anxiety disorder Anxiety - (Adde d by TW Conv) Other injury of unspecified body region, initial encounter Bone fracture - (Added by TW Conv) Personal history of other di seases of the respiratory system History of chronic obstructi ve lung disease - (Added by TW Conv) Personal history of other me ntal and behavioral disorders History of depression - (Add ed by TW Conv) Family History Medical History Relation Name Comments Diabetes Father Family history of diabetes mellitus - (Added by TW Conv) Diabetes Mother Family history of diabetes mellitus - (Added by TW Conv) Breast cancer Other Family history of malignant neoplasm of breast - (Added by TW Conv) Deafness Other Family history of deafness or hearing loss - (Added by TW Conv) Relation Name Status Comments Father Mother Other Social History Tobacco Use Types Packs/Day Years [...] on file Legal Sex Male 2:58 AM ULTRASOUND SUPERVISOR Gender Identity Not on file Sexual Orientation Not on file Obstetrics History Last Filed Vital Signs Vital Sign Reading [...] 07/05/2024 10:03 PM CDT Plan of Treatment Health Maintenance Due Date Last Done Comments Colon Cancer Screening-Colonoscopy 1961 Depression Screening 1961 Prostate Cancer Screening-PSA 1961 Hepatitis B Screening 1979 Regular Well Visit/Exam 18-64 1979 Zoster Vaccine (1 of 2) 2011 Pneumococcal vaccine <65 (2 of 2 - PCV) 03/03/2017 03/03/2016, 01/01/2014 DTaP/Tdap/Td Vaccine (2 - Td or Tdap) 01/02/2024 01/01/2014 Influenza Vaccine (Season Ended) 2024 04/06/2023, 04/05/2018, 03/03/2016, Additional history exists Hepatitis C Screening Completed 03/01/2024 Procedures Procedure Name Priority Date/Time Associated Diagnosis [...] 1:33 PM CDT DIFFERENTIAL AUTO STAT 07/05/2024 1:3 3 PM CDT TROPONIN I HIGH-SENSITIVITY SERIES (BASELINE, 2HR, 4HR, 6HR) STAT 07/05/2024 1:33 PM CDT CBC WITH AUTO DIFFERENTIAL STAT 07/05/2024 1:33 PM CDT COMPREHENSIVE METABOLIC PANEL STAT 07/05/2024 1:33 PM CDT HEPATITIS C ANTIBODY Routine 03/01/2024 8:53 PM ULTRASOUND SUPERVISOR from Last 3 Months or Most Recently Relevant to Health Maintenance Results * eGFR (07/06/2024 5:46 AM CDT) eGFR >90 >=60 mL/min/1. 73 m2 Comment: [...] of Race in Diagnosing Kidney Disease, JASN 202). The CKD-EPI equation should not be used for patients with unstable renal function and has not been validated in children and those over 70. Current interpretive data was last reviewed 2021. Blood 07/06/2024 5:46 AM CDT 07/06/2024 6:01 AM CDT us Sandra Cuevas MD LAB BLOOD ORDERABLES Final Resu lt [facility] [place] [address] * (ABNORMAL) Differential, auto (07/06/2024 5:46 AM CDT) Neutrophil abs 11.2(H) 1.5 - 6.5 K/cumm Imm gran abs 0.1 0.0 - 0.1 K/cumm [facility] Lymphocyte abs 1.1 0.8 - 3.3 K/cumm [facility] Monocyte abs 0.9(H) 0.2 - 0.8 K/cumm [facility] Eosinophil abs 0.1 0.0 - 0.5 K/cumm [facility] Basophil abs 0.0 0.0 - 0.1 K/cumm [facility] Neutrophil pct 83.4 % [facility] Comment: Interpretive Data Percent cell count reference ranges are not reported, since discordance with absolute values may lead to misinterpretation of CBC data. Current Interpretive Data was last revised on 2017. Imm gran pct 0.6 % [facility] Comment: Interpretive Data Percent cell count reference ranges are not reported, since discordance with absolute values may lead to misinterpretation of CBC data. Current Interpretive Data was last revised on 2017. Lymphocyte pct 8.3 % [facility] Comment: Interpretive Data Percent cell count reference ranges are not reported, since discordance with absolute values may lead to misinterpretation of CBC data. Current Interpretive Data was last revised on 2017. Monocyte pct 6.7 % [facility] Comment: Interpretive Data Percent cell count reference ranges are not reported, since discordance with absolute values may lead to misinterpretation of CBC data. Current Interpretive Data was last revised on 2017. Eosinophil pct 0.7 % [facility] Comment: Interpretive Data Percent cell count reference ranges are not reported, since discordance with absolute values may lead to misinterpretation of CBC data. Current Interpretive Data was last revised on 2017. Basophil pct 0.3 % [facility] Comment: Interpretive Data Percent cell count reference ranges are not reported, since discordance with absolute values may lead to misinterpretation of CBC data. Current Interpretive Data was last revised on 2017. Blood 07/06/2024 5:46 AM CDT 07/06/2024 6:01 AM CDT us Sandra Cuevas MD LAB BLOOD ORDERABLES Final Resu lt [facility] [place] [address] * (ABNORMAL) CBC with auto differential (07/06/2024 5:46 AM CDT) WBC 13.4(H) 3.8 - 9.9 K/cumm Hgb 11.9(L) 13.0 - 17.5 g/dL [facility] Hct 35.0(L) 38.9 - 50.3 % [facility] Plt 338 150 - 400 K/cumm [facility] MPV 9.1 9.1 - 12.3 fL [facility] RBC 3.93(L) 4.30 - 5.80 M/cumm [facility] MCV 89.1 81.3 - 96.4 fL [facility] MCH 30.3 27.1 - 33.3 pg [facility] MCHC 34.0 32.3 - 35.7 g/dL [facility] RDW CV 14.2 11.1 - 14.9 % [facility] RDW SD 46.3 35.7 - 48.1 fL [facility] NRBC abs 0.00 0.00 - 0.01 K/cumm [facility] Blood 07/06/2024 5:46 AM CDT 07/06/2024 6:01 AM CDT us Sandra Cuevas MD LAB BLOOD ORDERABLES Final Resu lt [facility] [place] [address] * (ABNORMAL) Basic metabolic panel (07/06/2024 5:46 AM CDT) Sodium 140 135 - 145 mmol/L Potassium, pl 4.5 3.3 - 4.9 mmol/L [facility] Chloride 107 97 - 110 mmol/L [facility] CO2 24 22 - 32 mmol/L [facility] Anion gap 9 2 - 15 mmol/L [facility] BUN 12 6 - 25 mg/dL [facility] Creatinine 0.70(L) 0.80 - 1.30 mg/dL [facility] Glucose 143 70 - 199 mg/dL [facility] Comment: Interpretive Data Fasting glucose >/= 126 [...] classification and Diagnosis of Diabetes Diabetes Care 202; 46: S19-S40. Current interpretive data was last revised 2022. Calcium 8.9 8.5 - 10.3 mg/dL [facility] Blood 07/06/2024 5:46 AM CDT 07/06/2024 6:01 AM CDT Sandra Cuevas MD LAB BLOOD ORDERABLES Final Resu lt [facility] Department [place] [address] * (ABNORMAL) Drugs of Abuse Screen, Urine with Reflex Confirmation (07/06/2024 4:37 AM CDT) Amphetamine, ur Not Detected CutOff 500ng/mL Comment: Interpretive Data - Amphetamines: Samples containing greater than 500 ng/mL d-methamphetamine or other cross-reacting amphetamine compounds are reported as positive. Amphetamine immunoassays are subject to significant false positive rates due to cross-reactivity of non-amphetamine drugs. Confirmatory testing required for definitive results. Current Interpretive Data was last reviewed 2022. Barbiturates, ur Not Detected CutOff 200ng/mL [facility] Comment: Interpretive Data - Barbiturates: Samples containing greater than 200 ng/mL secobarbital or other cross-reacting barbiturate compounds are reported as positive. False positive and false negative results are possible. Confirmatory testing required for definitive results. Current Interpretive Data was last reviewed 2022. Benzodiazepines, ur Not Detected CutOff 100ng/mL [facility] Comment: Interpretive Data - Benzodiazepines: Samples containing greater than 100 ng/mL nordiazepam or other cross-reacting compounds are reported as positive. False positive and false negative results are possible. Confirmatory testing required for definitive results. Current Interpretive Data was last reviewed 2022. Cannabinoids, ur Screen Positive, presumptive (A) CutOff 50 ng/mL [facility] Comment: Interpretive Data - Cannabinoids: Samples containing greater than 50 ng/mL delta-9 THC -COOH or other cross- reacting compounds are reported as positive. False positive and false negative results are possible. Confirmatory testing required for definitive results. Current Interpretive Data was last reviewed 2022. Cocaine, ur Not Detected CutOff 150ng/mL [facility] Comment: Interpretive Data - Cocaine: Samples containing greater than 150 ng/mL benzoylecgonine or other cross- reacting compounds are reported as positive. False positive and false negative results are possible. Confirmatory testing required for definitive results. Current Interpretive Data was last reviewed 2022. Fentanyl, Ur Not Detected CutOff 5 ng/mL [facility] Comment: Interpretive Data - Fentanyl: Samples containing greater than 5 ng/mL norfentanyl, fentanyl, or other cross-reacting fentanyl compounds are reported as positive. False positive and false negative results are possible. Confirmatory testing required for definitive results. Current Interpretive Data was last reviewed 2023. Methadone, ur Not Detected CutOff 300ng/mL [facility] Comment: Interpretive Data - Methadone: Samples containing greater than 300 ng/mL d,l-methadone or other cross-reacting compounds are reported as positive. False positive and false negative results are possible. Confirmatory testing required for definitive results. Current Interpretive Data was last reviewed 2022. Opiates, ur Not Detected CutOff 300ng/mL [facility] Comment: Interpretive Data - Opiates: Samples containing greater than 300 ng/mL morphine or other cross-reacting compounds are reported as positive. False positive and false negative results are possible. Confirmatory testing required for definitive results. Current Interpretive Data was last reviewed 2022. Oxycodone, ur Not Detected CutOff 100ng/mL [facility] Comment: Interpretive Data - Oxycodone: Samples containing greater than 100 ng/mL oxycodone or other cross-reacting compounds are reported as positive. False positive and false negative results are possible. Confirmatory testing required for definitive results. Current Interpretive Data was last reviewed 2022. Phencyclidine, ur Not Detected CutOff 25 ng/mL [facility] Comment: Interpretive Data - Phencyclidine: Samples containing greater than 25 ng/mL phencyclidine or other cross-reacting compounds are reported as positive. False positive and false negative results are possible. Confirmatory testing required for definitive results. Current Interpretive Data was last reviewed 2022. Urine Creatinine 79 mg/dL [facility] Comment: Interpretive Data Urine Creatinine: < 10 mg/dL is extremely dilute = or > 10 but < 20 mg/dL is dilute = or > 20 mg/dL is normal Current Interpretive Data was last revised on 2017. Urine 07/06/2024 4:37 AM CDT 07/06/2024 4:50 AM CDT Narrative [facility] - 07/06/2024 5:21 AM CDT Drug of Abuse screening is performed by immunoassay for medical purposes only. This is not to be used for Pain Management purposes. If Detected, confirmation testing will be performed for Amphetamines, Cocaine, Fentanyl, Methadone, Opiates, Oxycodone or Phencyclidine. Sandra Cuevas MD LAB URINE ORDERABLES Final Resu lt Performing Organization Address [facility] de Phone Number [facility] [place] [place] [address] * Troponin I high-sensitivity 2-hour (07/05/2024 3:33 PM CDT) [facility] Trop I hs <4 <=35 ng/L Comment: Interpretive Data For further [facility] resources including the diagnostic algorithm and an aid in interpretation, copy and paste this link: [email or web address]/[email or web address] Current Interpretive Data last revised 2019. Trop I hs delta 0 ng/L [facility] Trop I hs interp Insignificant [facility] Blood 07/05/2024 3:33 PM CDT 07/05/2024 3:43 PM CDT Result [facility] Zakiya Lopez MD LAB BLOOD ORDERABLES Fin al Result Performing Organization Address [facility] de Phone Number [facility] [place] [address] * Respiratory pathogen panel Nasopharyngeal (07/05/2024 2:04 PM CDT) [facility] Influenza A RNA Not Detected Not Detected Influenza B RNA Not Detected Not Detected [facility] RSV RNA Not Detected Not Detected [facility] COVID-19 RNA Not Detected Not Detected [facility] Coronavirus 229E RNA Not Detected Not Detected [facility] Coronavirus HKU1 RNA Not Detected Not Detected [facility] Coronavirus NL63 RNA Not Detected Not Detected [facility] Coronavirus OC43 RNA Not Detected Not Detected [facility] Adenovirus DNA Not Detected Not Detected [facility] Metapneumovirus RNA Not Detected Not Detected [facility] Rhinovirus/Enterov irus RNA Not Detected Not Detected [facility] Parainfluenza 1 RNA Not Detected Not Detected [facility] Parainfluenza 2 RNA Not Detected Not Detected [facility] Parainfluenza 3 RNA Not Detected Not Detected [facility] Parainfluenza 4 RNA Not Detected Not Detected [facility] B. pertussis DNA Not Detected Not Detected [facility] B. parapertussis DNA Not Detected Not Detected [facility] C. pneumoniae DNA Not Detected Not Detected [facility] M. pneumoniae DNA Not Detected Not Detected [facility] Nasopharyngeal 07/05/2024 2: 04 PM CDT 07/05/2024 2:12 PM CDT Narrative [facility] - 07/05/2024 3:43 PM CDT Is the Patient experiencing symptoms consistent with COVID?->Yes Surveillance testing for transplant patient?->No Interpretive Data The Giraffic FilmArray Respiratory Panel (RP2.1) assay is a [...] assay has FDA clearance for testing of BRAILLE TRANSCRIBER swabs. The performance of additional specimen types has been assessed by the performing laboratory. The performance characteristics of this assay have been determined by [facility] Molecular Infectious Disease Laboratory. Current interpretive data was last revised on 22. Zakiya Lopez MD LAB MICROBIOLOGY - [facility] ORDERABLES Final Result [facility] [place] [address] * XR Chest PA Lateral 2 Views [...] 12-LEAD (07/05/2024 1:57 PM CDT) Narrative [facility] - 07/05/2024 1:57 PM CDT Fantasma Burnett [...] in the ED Fantasma Burnett MD 07/05/24 1357 us Fantasma Burnett MD ECG ORDERABLES Final Resu lt Performing Organization Address [facility] Co de Phone Number [facility] * Troponin I high-sensitivity series (baseline, 2hr, 4hr, 6hr) (07/05/2024 1:33 PM CDT) Pathologist [facility] Trop I hs <4 <=35 ng/L Comment: Interpretive Data For further hscTnI resources including the diagnostic algorithm and an aid in interpretation, copy and paste this link: [email or web address]/[email or web address] Current Interpretive Data last revised 2019. Blood 07/05/2024 1:33 PM CDT 07/05/2024 1:37 PM CDT us Fantasma Burnett MD LAB BLOOD ORDERABLES Final Result Performing Organization Address [facility] Co de Phone Number [facility] [place] [address] * eGFR (07/05/2024 1:33 PM CDT) Pathologist [facility] eGFR >90 >=60 mL/min/1. 73 m2 [...] of Race in Diagnosing Kidney Disease, JASN 202). The CKD-EPI equation should not be used for patients with unstable renal function and has not been validated in children and those over 70. Current interpretive data was last reviewed 2021. Blood 07/05/2024 1:33 PM CDT 07/05/2024 1:39 PM CDT us Zakiya Lopez MD LAB BLOOD ORDERABLES Fin al Result [facility] [place] [address] * (ABNORMAL) Differential, auto (07/05/2024 1:33 PM CDT) Neutrophil abs 5.4 1.5 - 6.5 K/cumm Imm gran abs 0.0 0.0 - 0.1 K/cumm [facility] Lymphocyte abs 1.4 0.8 - 3.3 K/cumm [facility] Monocyte abs 0.7 0.2 - 0.8 K/cumm [facility] Eosinophil abs 1.2(H) 0.0 - 0.5 K/cumm [facility] Basophil abs 0.1 0.0 - 0.1 K/cumm [facility] Neutrophil pct 60.6 % [facility] Comment: Interpretive Data Percent cell count reference ranges are not reported, since discordance with absolute values may lead to misinterpretation of CBC data. Current Interpretive Data was last revised on 2017. Imm gran pct 0.5 % [facility] Comment: Interpretive Data Percent cell count reference ranges are not reported, since discordance with absolute values may lead to misinterpretation of CBC data. Current Interpretive Data was last revised on 2017. Lymphocyte pct 15.9 % [facility] Comment: Interpretive Data Percent cell count reference ranges are not reported, since discordance with absolute values may lead to misinterpretation of CBC data. Current Interpretive Data was last revised on 2017. Monocyte pct 8.2 % [facility] Comment: Interpretive Data Percent cell count reference ranges are not reported, since discordance with absolute values may lead to misinterpretation of CBC data. Current Interpretive Data was last revised on 2017. Eosinophil pct 13.7 % [facility] Comment: Interpretive Data Percent cell count reference ranges are not reported, since discordance with absolute values may lead to misinterpretation of CBC data. Current Interpretive Data was last revised on 2017. Basophil pct 1.1 % [facility] Comment: Interpretive Data Percent cell count reference ranges are not reported, since discordance with absolute values may lead to misinterpretation of CBC data. Current Interpretive Data was last revised on 2017. Blood 07/05/2024 1:33 PM CDT 07/05/2024 1:37 PM CDT Fantasma Burnett MD LAB BLOOD ORDERABLES Final Result [facility] [place] [address] * CBC with auto differential (07/05/2024 1:33 PM CDT) WBC 8.9 3.8 - 9.9 K/cumm Hgb 13.8 13.0 - 17.5 g/dL [facility] Hct 40.5 38.9 - 50.3 % [facility] Plt 370 150 - 400 K/cumm [facility] MPV 9.1 9.1 - 12.3 fL [facility] RBC 4.53 4.30 - 5.80 M/cumm [facility] MCV 89.4 81.3 - 96.4 fL [facility] MCH 30.5 27.1 - 33.3 pg [facility] MCHC 34.1 32.3 - 35.7 g/dL [facility] RDW CV 13.9 11.1 - 14.9 % [facility] RDW SD 45.7 35.7 - 48.1 fL [facility] NRBC abs 0.00 0.00 - 0.01 K/cumm [facility] Blood 07/05/2024 1:33 PM CDT 07/05/2024 1:37 PM CDT us Fantasma Burnett MD LAB BLOOD ORDERABLES Final Result [facility] [place] [address] * (ABNORMAL) Comprehensive metabolic panel (07/05/2024 1:33 PM CDT) Sodium 141 135 - 145 mmol/L Potassium, pl 4.3 3.3 - 4.9 mmol/L [facility] Chloride 102 97 - 110 mmol/L [facility] [facility] CO2 26 22 - 32 mmol/L [facility] Anion gap 13 2 - 15 mmol/L [facility] BUN 8 6 - 25 mg/dL [facility] Creatinine 0.70(L) 0.80 - 1.30 mg/dL [facility] Glucose 130 70 - 199 mg/dL [facility] Comment: Interpretive Data Fasting glucose >/= 126 [...] 2022. Calcium 9.3 8.5 - 10.3 mg/dL [facility] Bilirubin, total 0.2 0.1 - 1.2 mg/dL [facility] Protein, pl 7.8 6.5 - 8.5 g/dL [facility] Albumin 4.0 3.5 - 5.0 g/dL [facility] Alk phos 115 40 - 130 Units/L [facility] ALT 10 7 - 55 Units/L [facility] AST 23 10 - 50 Units/L [facility] Blood 07/05/2024 1:33 PM CDT 07/05/2024 1:37 PM CDT us Fantasma Burnett MD LAB BLOOD ORDERABLES Final Result Performing Organization Address [facility] Co de Phone Number [facility] Department [place] [address] * Hepatitis C antibody Blood (03/01/2024 8:53 PM ULTRASOUND SUPERVISOR) Hep C Ab Nonreactive Nonreactive Comment:Antibodies to HCV no t detected. Does NOT exclude the possibility of recent exposure to HCV. Current interpretive data was last revised on 21 Blood 03/01/2024 8:53 PM ULTRASOUND SUPERVISOR 03/01/2024 9:16 PM ULTRASOUND SUPERVISOR us Garcia Limon MD LAB MICROBIOLOGY - GENERAL ORD ERABLES Final Result Performing Organization Address [facility] Co de Phone Number [facility] Department [place] [address] from Last 3 Months or Most Recently Relevant to Health Maintenance Insurance [place] Advance Directives For more information, please contact: [phone] * Full Code (Latest Code Status on File) Date Activated Date Inactivated Comments 07/05/2024 10:03 PM 07/06/2024 6:11 PM * Full Code Date Activated Date Inactivated Comments 03/01/2024 9:16 AM 03/06/2024 10:04 AM Care Teams Rotor Blade Installer Relationship Specialty Start Date End Date Deejay Styles MD [address] [place] [address] Referring Physician Internal Medicine 07/02/23
--- OUTSIDE RECORDS SUMMARY | 2024-09-08 17:09 | XMS_ITS | Encounter Summary ---
Author Organization [facility] Healthcare Address [address] [place] [address] Care Team Providers Care Orthotist/Prosthetist Name Role Phone Asad Torres MD Primary Care Provider [phone] Asad Gaines MD Primary Care Provider Deejay Styles MD Unavailable [phone] Reason for Visit * Reason Onset Date Comments READY TO SCHEDULED 05/11/2023 Encounter Details Date Type Department Care Team (Late st Contact Info) Description 05/11/2023 Telephone [facility] Specialty Services [address] [place] [address] Miscellaneous, Not In File READY TO SCHEDULED Social History Tobacco Use Types Packs/Day Years Used Date Smoking Tobacco: Former Smokeless Tobacco: Current Chew AUDIT-C Answer Date Recorded Q1: How often [...] true 08/09/2022 Personal Safety Answer Date Recorded Getting School Help Needed Denies 05/11 Sex and Gender Information Value Date Recorded Sex Assigned at Not on file Legal 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 Gender Identity Not on file Sexual Orientation Not on file documented as of this encounter Plan of Treatment Not on file documented as of this encounter Visit Diagnoses Not on filedocumented in this encounter Additional Health Concerns Infection Onset Date Last Indicated Resolved Time COVID: Suspected 07/05/2024 07/05/2024 07/05/2024 3:44 PM CDT documented as of this encounter Care Teams Orthotist/Prosthetist Relationship Specialty Start Date End Date Asad Torres MD PCP - General 04/03/17 06/07/23 Asad Gaines MD PCP - General Family Medicine 06/08/23 06/17/23 Deejay Styles MD [address] [place] [address] Referring Physician Internal Medicine 07/02/23 documented as of this encounter
--- OUTSIDE RECORDS SUMMARY | 2024-09-08 17:09 | XMS_ITS | Continuity of Care Document ---
Author Organization [facility] Address [address] [place] [address] Phone Care Team Providers Care Supervisor Carding Name Role Phone Deejay Styles MD Unavailable Unavailable Allergies, Adverse Reactions, Alerts Substance Reaction Status Criticality clindamycin Swelling Active No Information Medications Medication Instructions Dosage Effective Dates (start - stop) Status Comments Symbicort 160 mcg-4.5 mcg/actuation HFA aerosol inhaler INHALE 2 PUFFS BY MOUTH TWICE DAILY IN THE MORNING AND IN THE EVENING - Active Ventolin HFA 90 mcg/actuation aerosol inhaler inhale 2 puff by inhalation route every 4 - 6 hours as needed 180 MCG - Active bupropion HCl SR 100 mg tablet,12 hr sustained-release TAKE 1 TABLET BY ORAL ROUTE 2 TIMES EVERY DAY. - Active cetirizine 10 mg tablet take 1 tablet by oral route every day 10 MG - Active cyanocobalamin (vit B-12) 1,000 mcg tablet take 1 tab PO daily; may give 500mcg daily if 1000mcg not available - Active may substitute with 500 mcg if 1000 mcg not available folic acid 1 mg tablet take 1 tablet by oral route every day 1 MG - Active thiamine HCl (vitamin B1) 100 mg tablet take 1 by Oral route every day 1 - Active Vitamin D3 50 mcg (2,000 unit) tablet take 1 cap PO every day - Active Procedures Procedure Date BEHAVIORAL HEALTH OUTREACH SERVICE (PLAN OPAL APPROACH TO REACH A TARGETED BEHAVIORAL HEALTH COUNSELING AND THERAPY , PER 15 MINUTES Alcohol and/or drug services; case manag ement BEHAVIORAL HEALTH COUNSELING AND THERAPY , PER 15 MINUTES BEHAVIORAL HEALTH COUNSELING AND THERAPY , PER 15 MINUTES BEHAVIORAL HEALTH PREVENTION EDUCATION S ERVICE (DELIVERY OF SERVICES WITH [facility] WARMHAND[facility] 5/>MIN OFFICE/OUTPATIENT VISIT, EST BEHAVIORAL HEALTH COUNSELING AND THERAPY , PER 15 MINUTES BEHAVIORAL HEALTH COUNSELING AND THERAPY , PER 15 MINUTES BEHAVIORAL HEALTH PREVENTION EDUCATION S ERVICE (DELIVERY OF SERVICES WITH BEHAVIORAL HEALTH PREVENTION EDUCATION S ERVICE (DELIVERY OF SERVICES WITH BEHAVIORAL HEALTH COUNSELING AND THERAPY , PER 15 MINUTES Alcohol and/or drug services; case manag ement Therapeutic behavioral services, per 15 minutes OFFICE/OUTPATIENT VISIT, EST BEHAVIORAL HEALTH OUTREACH SERVICE (PLAN OPAL APPROACH TO REACH A TARGETED X-RAY EXAM CHEST 2 VIEWS X-RAY EXAM, SPINE, LUMBOSACRAL, MIN 4 EWS Therapeutic behavioral services, per 15 minutes ELECTROCARDIOGRAM, COMPLETE HEMOGLOBIN; GLYCOSYLATED (A1C) 24 GLUCOSE; QUANTITATIVE, BLOOD (EXCEPT ROBERT GENT STRIP) Urinalysis, Auto, w/o Scope PERIODIC COMPREHENSIVE PREVENTIVE MED RE E/M; ESTABLISHED PATIENT; 40-64 Alcohol and/or drug screening OFFICE/OUTPATIENT VISIT, EST DETERMINATION OF REFRACTIVE STATE Scan Computer Ophthal Diag Imag,Post Seg , Uni/Siddhartha, Retina OFFICE/OUTPATIENT VISIT, NEW COMPREHENSIVE HEARING TEST TYMPANOMETRY (IMPEDANCE TESTING) 2022 X-RAY EXAM CHEST 2 VIEWS Urinalysis, Auto, w/o Scope HEMOGLOBIN; GLYCOSYLATED (A1C) 23 GLUCOSE; QUANTITATIVE, BLOOD (EXCEPT ROBERT GENT STRIP) PERIODIC COMPREHENSIVE PREVENTIVE MED RE E/M; ESTABLISHED PATIENT; 40-64 OFFICE/OUTPATIENT VISIT, EST OFFICE OUTPT EST 25 MIN OFFICE/OUTPATIENT VISIT, EST OFFICE/OUTPATIENT VISIT, EST ELECTROCARDIOGRAM, COMPLETE Alcohol and/or drug screening 9 Urinalysis, Auto, w/o Scope HEMOGLOBIN; GLYCOSYLATED (A1C) 19 GLUCOSE; QUANTITATIVE, BLOOD (EXCEPT ROBERT GENT STRIP) OFFICE/OUTPATIENT VISIT, EST Limit Oral Evaluation- problem focused A Periapical Radiographic, first Image Jul Periapical Radiographic Image, ea addl A Extraction erupted tooth or exposed root Extraction erupted tooth or exposed root OFFICE OUTPT EST 25 MIN INFLUENZA VACCINE, AGE 4-18 YRS 017 DETERMINATION OF REFRACTIVE STATE OFFICE/OUTPATIENT VISIT, NEW OFFICE/OUTPATIENT VISIT, EST OFFICE OUTPT EST 25 MIN X-RAY EXAM, CHEST, FRONTAL/LATERAL, 2 EWS X-RAY EXAM, TIBIA/FIBULA, 2 VIEWS X-RAY EXAM, ANKLE, COMPLETE, MIN 3 VIEWS BLOOD COUNT; COMPLETE (CBC), AUTOMATED D IFF COMPRE METAB PANEL SEDIMENTATION RATE, ERYTHROCYTE; AUTOMAT ED URINALYSIS; MICROSCOPIC ONLY OFFICE OUTPT EST 25 MIN OFFICE/OUTPATIENT VISIT, EST OFFICE/OUTPATIENT VISIT, EST COMPREHENSIVE HEARING TEST TYMPANOMETRY (IMPEDANCE TESTING) 2016 Voided Encounter TYMPANOMETRY (IMPEDANCE TESTING) 2015 OFFICE OUTPT EST 25 MIN Administration of Influenza Virus Vaccin e OFFICE OUTPT EST 25 MIN Alcohol and/or drug screening 5 COMPRE METAB PANEL COLLECTION OF VENOUS BLOOD BY VENIPUNCTU RE OFFICE/OUTPATIENT VISIT, EST ALCOHOL AND/OR DRUG PREVENTI ON ENVIRONMENTAL SERVICE (BROAD RANGE OF EXTERNAL ALCOHOL AND/OR DRUG PREVENTI ON ENVIRONMENTAL SERVICE (BROAD RANGE OF EXTERNAL Voided Encounter Voided Encounter OFFICE/OUTPATIENT VISIT, EST Mental health services, not otherwise sp ecified Amalgam two surfaces Limit oral eval problem focused 014 Periapical Radiographic, first Image Mar Mental health services, not otherwise sp ecified Surgical extr erupted tooth Periapical Radiographic, first Image Feb Periapical Radiographic, first Image Jan Extraction erupted tooth or exposed root OFFICE O/P EST 5 MIN OFFICE/OUTPATIENT VISIT, EST Comprehensve oral evaluation Dental Bitewings Radiographic, Four Imag es Oral hygiene instruction Debridement, Full Mouth X-RAY EXAM, CHEST, FRONTAL/LATERAL, 2 EWS COLLECTION OF VENOUS BLOOD BY VENIPUNCTU RE Immun admin-adult or WO counseling - fir st vaccine/toxoid INFLUENZA VACCINE, AGE 3YRS+ Immun admin-adult or WO counseling - fir st vaccine/toxoid Pneumococcal polysaccharide vaccine, 23- valent (Pneumo-Vax 23) to age 2+ Immun admin-adult or WO counseling - fir st vaccine/toxoid TDAP VACCINE 7 YR + IM OFFICE/OUTPATIENT VISIT, NEW Extraction erupted tooth or exposed root Periapical Radiographic, first Image Dec Periodic oral evaluation Extraction erupted tooth or exposed root Limit oral eval problem focused 014 Periapical Radiographic, first Image Nov Incision & drainage of soft tissue absce ss Limit oral eval problem focused 012 HEPATITIS A VACCINE, ADULT DOSAGE, FOR I NTRAMUSCULAR USE TDAP VACCINE 7 YR + IM COLLECTION OF VENOUS BLOOD BY VENIPUNCTU RE OFFICE OUTPT EST 25 MIN COLLECTION OF VENOUS BLOOD BY VENIPUNCTU RE Periapical first film Limit oral eval problem focused 010 Extraction erupted tooth or exposed root HOME VST EST PT LOW TO MOD SEVERITY Advance Directives Directive Yes / No Effective Date File Name No Information Encounters Encounter Description Practice Location Reason(s) For Visit Diagnoses Date Provider Providers Copied on Encounter [facility], [address], [place], [place], [address] , tel: [phone] [facility] No Information 5 Stephani Villalba. [address], [place], [place], [address], . tel:[phone] [facility], [address], [place], [place], [address] , tel: [phone] T [facility] No Information 4 Pelon Martinez. [address], [place], [place], [address], . tel:[phone] [facility], [address], [place], [place], [address] , tel: [phone] [facility] No Information 4 Management Case. [address], [place], [place], [address], . tel:[phone] [facility], [address], [place], [place], [address] , tel: [phone] Det[facility] No Information 4 Management [facility]. [address], [place], [place], [address], . tel:[phone] [facility], [address], [place], [place], [address] , tel: [phone] Detention No Information 4 Management [facility]. [address], [place], [place], [address], [place]. tel:[phone] [facility], [address], [place], [place], [address] [place] [address] , [place] tel: [phone] Det[facility] No Information 4 Management [facility]. [address], [place], [address] [place] [address], [place]. tel:[phone] [facility], [address], [place], [place], [address] , [place] tel: [phone] Det[facility] No Information 4 Management Case. [address], [place], [address] [place] [address], [place]. tel:[phone] [facility] 5/>MIN [facility], [address], [place], [place], [address] , [place] tel: [phone] [facility] Major depressive disorder, single episode, unspecifiedS uicidal ideations 4 Pelon Martinez. [address], [place], [place], [address], [place]. 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 [address], [place], [place], [address], [place]. tel:[phone] Referring Provider: Deejay Styles, [address], [place], [address]. tel:[phone] [facility], [address], [place], [place], [address] , [place] tel: [phone] Det[facility] No Information 4 Management [facility]. [address], [place], [place], [address], [place]. tel:[phone] [facility], [address], [place], [place], [address] , [place] tel:[phone] Detention No Information Dec-0 4 Management Case. [address], [place], [address] [place] [address], [place]. tel:[phone] [facility], [address], [place], [place], [address] , tel:[phone] Detention No Information Dec-0 4 Management Case. [address], [place], [address] [place] [address], [place]. tel:[phone] [facility], [address], [place], [address] [place] [address] , tel: [phone] Detention No Information Dec-0 4 Management Case. [address], [place], [address] [place] [address], [place]. tel:[phone] [facility], [address], [place], [address] [place] [address] , [place] tel:[phone] Detention No Information Mar-0 4 Management Case. [address], [place], [address] [place] [address], [place]. tel:[phone] [facility], [address], [place], [place], [address] , [place] tel: [phone] Detention No Information 4 Management Case. [address], [place], [address] [place] [address], [place]. tel:[phone] Consulting Provider: Case Management, [address], [place], [address]. tel:[phone] [facility], [address], [place], [place], [address] , [place] tel:[phone] [facility] No Information Jun-0 4 Pelon Martinez. [address], [place], [address] [place] [address], [place]. tel:[phone] OFFICE/OUTPATI ENT VISIT, EST [facility], [address], [place], [place], [address] , tel: [phone] [facility] discussion of the labs (chief complaint) ScoliosisArt hropathy 4 Stephani Villalba. [address], [place], [address] [place] [address], . tel:[phone] Referring Provider: Deejay Styles, [address], [place], [address] [place] [address]. tel:[phone] [facility], [address], [place], [address] [place] [address] , tel: [phone] [facility] No Information 4 Pelon Martinez. [address], [place], [address] [place] [address], . tel:[phone] [facility], [address], [place], [address] [place] [address] , tel: [phone] [facility] No Information 4 Stephani Villalba. [address], [place], [address] [place] [address], . tel:[phone] Referring Provider: Deejay Styles, [address], [place], [address] [place] [address]. tel:[phone] [facility], [address], [place], [address] [place] [address] , tel: [phone] [facility] No Information 4 Pelon Martinez. [address], [place], [address] [place] [address], . tel:[phone] PERIODIC COMPREHENSIVE PREVENTIVE MED REE/M; ESTABLISHED PATIENT; 40-64 [facility], [address], [place], [address] [place] [address] , tel:[phone] [facility] assessment (chief complaint) Encounter for adult annual physical exam w/ abnormal findingsAsth maMixed conductive and sensorineura l hearing loss, bilateralEnc ounter for screening for other disorderMajo r depressive disorder, single episode, unspecifiedS tressAnxiety Tobacco useLumbagoEn counter for screening for malignant neoplasm of colonAbnorma l ECG 4 Stephani Villalba. [address], [place], [place], [address], . tel:[phone] Referring Provider: Deejay Styles, [address], [place], [address]. tel:[phone] OFFICE/OUTPATI ENT VISIT, NEW [facility], [address], [place], [place], [address] , [place] tel:[phone] [facility] blurry vision (chief complaint)bl urry vision (chief complaint) Hypermetropi a, bilateralPre sbyopiaOther age-related cataractCent ral serous chorioretino landon, left eyeNutrition al deficiency, unspecified 3 Shruti Cisneros. [address], [place], [place], [address], . tel:[phone] Referring Provider: Amelia Bahena, [address], [place], [address]. 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 [address], [place], [place], [address], [place]. tel:[phone] Referring Provider: Deejay Styles, [address], [place], [address]. tel:[phone] PERIODIC COMPREHENSIVE PREVENTIVE MED REE/M; ESTABLISHED PATIENT; 40-64 [facility], [address], [place], [place], [address] , [place] tel:[phone] [facility] s/p [facility] 2 months ago (chief complaint) AsthmaCatherine Hope for adult annual physical exam w/ abnormal findingsEnco unter for screening for other disorderHear ing lossMixed conductive and sensorineura l hearing loss, bilateralAbn ormal results of liver function studiesEncou nter for screening for malignant neoplasm of colon 3 Stephani Villalba. [address], [place], [place], [address], . tel:[phone] Referring Provider: Deejay Styles, [address], [place], [address]. tel:[phone] OFFICE OUTPT EST 25 MIN [facility], [address], [place], [place], [address] , [place] tel: [phone] [facility] visit 07/05/22 for COPD (chief complaint) AsthmaAllerg ic rhinitisEnco unter for immunization 3 No Information OFFICE/OUTPATI ENT VISIT, EST [facility], [address], [place], [place], [address] , [place] tel: [phone] [facility] discussion (chief complaint) AnxietyEncou nter for screening, unspecified 0 Stephani Villalba. [address], [place], [place], [address], [place]. tel:[phone] Referring Provider: Deejay Styles, [address], [place], [address]. tel:[phone] OFFICE/OUTPATI ENT VISIT, EST [facility], [address], [place], [place], [address] , [place] tel: [phone] [facility] abnormal EKG WITH CHEST PAIN (chief complaint)DS E (chief complaint)Ca rdiovascular Review (chief complaint) Chest pain 9 No Information OFFICE/OUTPATI ENT VISIT, EST [facility], [address], [place], [place], [address] , [place] tel: [phone] [facility] assessment (chief complaint) Body mass index (BMI) 22.0-22.9, adultEncount er for adult annual physical exam w/ abnormal findingsEnco unter for screening for malignant neoplasm of colonAnxiety Hearing lossAsthmaCh est painAbnormal ECGEncounter for screening for other disorder 9 Stephani Villalba. [address], [place], [place], [address], . tel:[phone] Referring Provider: Deejay Styles, [address], [place], [address]. 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 [address], [place], [place], [address], [place]. tel:[phone] Referring Provider: Deejay Styles, [address], [place], [address]. tel:[phone] OFFICE/OUTPATI ENT VISIT, NEW [facility], [address], [place], [place], [address] , [place] tel: [phone] [facility] flashes of light (chief complaint)fl ashes of light (chief complaint) Hypermetropi a, bilateralReg ular astigmatism, left eyePresbyopi aNutritional deficiency 7 Moriah Alejandre. [address], [place], [place], [address], [place]. tel:[phone] Referring Provider: Hill Major, [address], [place], [address]. tel:[phone] OFFICE/OUTPATI ENT VISIT, EST [facility], [address], [place], [place], [address] , tel: [phone] [facility] discussion of labs (chief complaint) Abnormal results of liver function studies 7 Stephani Villalba. [address], [place], [place], [address], [place]. tel:[phone] Referring Provider: Deejay Styles, [address], [place], [address]. tel:[phone] OFFICE OUTPT EST 25 MIN [facility], [address], [place], [place], [address] , [place] tel:[phone] [facility] left leg infection/tr auma (chief complaint) Cellulitis of left leg Stephani Villalba. [address], [place], [place], [address], [place]. tel:[phone] Referring Provider: Deejay Styles, [address], [place], [address]. tel:[phone] OFFICE OUTPT EST 25 MIN [facility], [address], [place], [place], [address] , [place] tel: [phone] [facility] s/p [facility] (chief complaint) Unspecified open wound, left lower leg, sequelaCellu litisPain in left ankle and joints of left foot 7 Stephani Villalba. [address], [place], [place], [address], [place]. tel:[phone] Referring Provider: Deejay Styles [address], [place], [address]. tel:[phone] OFFICE/OUTPATI ENT VISIT, EST [facility], [address], [place], [place], [address] , [place] tel:[phone] [facility] musculoskele chrissy pain (chief complaint) Major depressive disorder, single episode, unspecifiedE ncounter for general adult medical examination without abnormal findingsOthe r biomechanica l lesions of lower extremity 7 Anisha Hoyt. [address], [place], [place], [address], [place]. tel:[phone] Referring Provider: Evelina Lancaster, [address], [place], [address]. 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 [address], [place], [place], [address], . tel:[phone] Referring Provider: Alexa Bryant, [address], [place], [address]. tel:[phone] [facility], [address], [place], [place], [address] , tel: [phone] [facility] No Information 6 Sinks Alexa. [address], [place], [place], [address], . tel:[phone] Referring Provider: Alexa Bryant, [address], [place], [address]. tel:[phone] OFFICE OUTPT EST 25 MIN [facility], [address], [place], [place], [address] , tel: [phone] [facility] ETOHism, MDD and asthma (chief complaint) Major depressive disorder, single episode, unspecifiedA sthmaEncount er for screening for malignant neoplasm of colon 6 No Information OFFICE OUTPT EST 25 MIN [facility], [address], [place], [place], [address] , tel: [phone] [facility] ETOHism, MDD and asthma (chief complaint) MDDAsthmaAlc ohol abuseScreeni ng for alcoholism 5 No Information OFFICE/OUTPATI ENT VISIT, EST [facility], [address], [place], [place], [address] , [place] tel: [phone] [facility] ETOHism, MDD, asthma (chief complaint) MDDAlcohol abuseAsthma 5 No Information [facility], [address], [place], [place], [address] , [place] tel: [phone] [facility] No Information 5 No Information [facility], [address], [place], [place], [address] , [place] tel: [phone] [facility] No Information 5 No Information [facility], [address], [place], [place], [address] , [place] tel: [phone] [facility] No Information 5 No Information OFFICE/OUTPATI ENT VISIT, EST [facility], [address], [place], [place], [address] , [place] tel: [phone] [facility] ETOHism, MDD (chief complaint) Alcohol abuseMDD 5 No Information [facility], [address], [place], [place], [address] , [place] tel: [phone] [facility] substance abuse (chief complaint) No Information 4 No Information [facility], [address], [place], [place], [address] , [place] tel: [phone] [facility] examination 4 No Information [facility], [address], [place], [place], [address] , [place] tel: [phone] [facility] Dental examination 4 Melita Merrill. [address], [place], [place], [address], [place]. tel:[phone] Referring Provider: Garfield Hua, [address], [place], [address]. tel:[phone] [facility], [address], [place], [place], [address] , [place] tel: [phone] [facility] substance abuse (chief complaint) Counseling NOS (Hlth, Education, Advice, Instr) 4 No Information [facility], [address], [place], [place], [address] , [place] tel: [phone] [facility] Dental examination 4 No Information [facility], [address], [place], [place], [address] , [place] tel: [phone] [facility] examination 4 No Information OFFICE O/P EST 5 MIN [facility], [address], [place], [place], [address] , [place] tel: [phone] [facility] Ppd Reading (chief complaint) Unspecified follow-up examination 4 Nurse Registered. [address], [place], [place], [address], . [phone] Referring Provider: Registered Nurse, [address], [place], [address]. tel:[phone] lting Provider: Clari Grant, [address], [place], [address]. tel:[phone] OFFICE/OUTPATI ENT VISIT, EST [facility], [address], [place], [place], [address] , [place] tel: [phone] [facility] otitis media (chief complaint) Screening for cancerSCREEN ING-PULMONAR Y TBOtitis media 4 No Information [facility], [address], [place], [place], [address] , [place] tel: [phone] [facility] Dental examination 4 No Information [facility], [address], [place], [place], [address] , [place] tel: [phone] [facility] No Information 4 No Information OFFICE/OUTPATI ENT VISIT, NEW [facility], [address], [place], [place], [address] , [place] tel: [phone] [facility] establish care (chief complaint) CoughOnychom ycosisAlcoho l abuseChronic low back painRoutine general medical examination at a health care facilityHemo rrhoidsOtiti s media 4 No Information [facility], [address], [place], [place], [address] , tel: [phone] [facility] examination 4 Melita Merrill. [address], [place], [place], [address], . tel:[phone] Referring Provider: Garfield Hua [address], [place], [address]. tel:[phone] [facility], [address], [place], [place], [address] , tel: [phone] [facility] examination 4 No Information [facility], [address], [place], [place], [address] , tel: [phone] [facility] examination 4 Melita Merrill. [address], [place], [place], [address], . [phone] Referring Provider: Garfield Hua [address], [place], [address]. tel:[phone] [facility], [address], [place], [place], [address] , tel: [phone] DO NOT USE [facility] examination 2 No Information OFFICE OUTPT EST 25 MIN [facility], [address], [place], [id number] , tel: [phone] [facility] [place] physical exam (chief complaint)Bi lateral Hearing Loss (chief complaint)he adache (chief complaint)de pression (chief complaint) Routine general medical examination at a health care facilityEdem aUnspecified hearing lossNeed for prophylactic vaccination with unspecified combined vaccineUnspe cified adjustment reactionRout ine general medical examination at a health care facility 0 No Information Zara roberts, [address], [place], [place], [id number] , [place] tel:[phone] DO NOT USE [facility] No Information 0 No Information HOME VST EST PT LOW TO MOD SEVERITY Zara roberts, [address], [place], [place], [id number] , [place] tel:[phone] Detention verifr appt (chief complaint)de ntal referral (chief complaint) Other specified counseling 0 No Information As per patient privacy policy some of the clinical information may not be visible. Family History Family Member Type Diagnosis Age At Onset Father Problem (finding) Hearing Loss Father Problem (finding) Sensorineural hearing l oss Mother Problem (finding) Maternal history of addis betes mellitus Immunizations Vaccine Date Status Comments 4 years and older, trivalent administered Source: New Immunization Record Influenza virus vaccine, injectable, quadrivalent, split virus, preservative free, 3 years or older Fluarix, Flulaval or Fluzone Quad administered Source: New Immuniza tion Record Influenza, seasonal, injectable (3 yrs or older) administered Source: New Immunization Record Pneumo (2 yrs or older)(PPV) administered Source: New Immunization Record Tdap administered Source: New Imm unization Record Hep A (adult) administered Source: New Im munization Record Tdap administered Source: New Imm unization Record Payers Payer name Insurance type Covered libertarian ID Authoriza tion(s) Medicare PPS MB [id number] Medicare PPS MB [id number] Medicare PPS MB [id number] Social History Type Description Quantity Date Captured Comments Alcohol Use Details Unknown Caffeine Use Details Unknown Tobacco Use Status No Information Smoking Status No Information Sex Male Sexual Orientation Straight or heterosexual Dec Gender Identity Male Chief Complaint And Reason For Visit No Information Reason For Referral Reason For Referral No Information Plan Of Treatment Date Type Action Status Goal Lipid Panel. Due on due Goal Dental Exam. Due on due Goal Tdap/TD Vaccine. Due on due Goal Covid-19 Vaccine . Due on due Goal Influenza Vaccin e. Due on due Goal FIT-DNA (Cologua rd). Due on due Goal FIT/Hemosure. Due on [address]ning Discussed(document in Advance Directives). Due on due Goal Low-Dose CT Lung Screen. Due on due Goal Glucose or Hemog lobin A1c. Due on due Goal PSA. Due on due Goal Colonoscopy. Due on due Goal STI Testing (Exc lude or Hold if not at risk). Due on due Goal Zoster Vaccine. Due on due Goal Pneumococcal Vac cine. Due on due Goal Eye Exam. Due on due Goal H&P. Due on due Goal Zoster Vaccine. Due on due Goal Eye Exam. Due on due Goal PSA. Due on due Goal Lipid Panel. Due on due Goal STI Testing (Exc lude or Hold if not at risk). Due on due Goal Tdap/TD Vaccine. Due on due Goal FIT-DNA (Cologua rd). Due on due Goal Low-Dose CT Lung Screen. Due on due Goal Dental Exam. Due on due Goal FIT/Hemosure. Due on 2023 due Goal Glucose or Hemog lobin A1c. Due on due Goal Colonoscopy. Due on due Goal H&P. Due on due Goal Covid-19 Vaccine . Due on due Goal Advanced Care Pl anning Discussed(document in Advance Directives). Due on due Goal Pneumococcal Vac cine. Due on due Goal Influenza Vaccin e. Due on due Goal Pneumococcal Vac cine. Due on due Goal Dental Exam. Due on due Goal STI Testing (Exc lude or Hold if not at risk). Due on due Goal Zoster Vaccine. Due on due Goal FIT-DNA (Cologua rd). Due on due Goal Tdap/TD Vaccine. Due on due Goal Covid-19 Vaccine . Due on due Goal Lipid Panel. Due on due Goal Influenza Vaccin e. Due on due Goal Low-Dose CT Lung Screen. Due on due Goal FIT/Hemosure. Due on 2023 due Goal Glucose or Hemog lobin A1c. Due on due Goal Colonoscopy. Due on due Goal Advanced Care Pl anning Discussed(document in Advance Directives). Due on due Goal PSA. Due on due Goal H&P. Due on due Goal Eye Exam. Due on due Goal Pneumococcal Vac cine. Due on due Goal Eye Exam. Due on due Goal PSA. Due on due Goal Advanced Care Pl anning Discussed(document in Advance Directives). Due on due Goal FIT-DNA (Cologua rd). Due on due Goal Zoster Vaccine. Due on due Goal Glucose or Hemog lobin A1c. Due on due Goal Covid-19 Vaccine . Due on due Goal Tdap/TD Vaccine. Due on due Goal Low-Dose CT Lung Screen. Due on due Goal H&P. Due on due Goal Colonoscopy. Due on due Goal Lipid Panel. Due on due Goal STI Testing (Exc lude or Hold if not at risk). Due on due Goal Influenza Vaccin e. Due on due Goal FIT/Hemosure. Due on 2023 due Goal Dental Exam. Due on due Goal H&P. Due on due Goal H&P. Due on due Goal H&P. Due on due Goal H&P. Due on due Goal H&P. Due on due Goal H&P. Due on due Goal H&P. Due on due Goal Unhealthy drug u se screening. Due on due Goal Influenza vaccin e. Due on due Goal FIT-DNA. Due on due Goal H&P. Due on due Goal FIT. Due on due Goal Hepatitis C scre ening. Due on due Goal Colonoscopy. Due on due Goal Zoster vaccine ( ). Due on due Goal Zoster vaccine. Due on due Goal CT-Colonography. Due on due Goal H&P. Due on due Goal Colonoscopy. Due on due Goal Influenza vaccin e. Due on due Goal Zoster vaccine. Due on due Goal CT-Colonography. Due on due Goal FIT. Due on due Goal FIT-DNA. Due on due Goal Hepatitis C scre ening. Due on due Goal Unhealthy drug u se screening. Due on due Goal Zoster vaccine ( ). Due on due Goal Colonoscopy. Due on due Goal Influenza vaccin e. Due on due Goal H&P. Due on due Goal Influenza vaccin e. Due on due Goal H&P. Due on due Goal Colonoscopy. Due on due Goal Influenza vaccin e. Due on due Goal H&P. Due on due Goal Colonoscopy. Due on due Goal H&P. Due on due Goal Urinalysis. Due on 10 due Goal Lipid Panel. Due on due Goal BMP fasting. Due on due Goal H&P. Due on due Goal BMP fasting. Due on 010 due Goal Urinalysis. Due on 10 due Goal Lipid Panel. Due on due Goal Tobacco cessation counseling completed Goal H&P. Due on due Goal BMP fasting. Due on 010 due Goal Lipid Panel. Due on due Goal Urinalysis. Due on 10 due Goal BMP fasting. Due on 010 due Goal Urinalysis. Due on 10 due Goal H&P. Due on due Goal Lipid Panel. Due on due Goal Urinalysis. Due on due Goal BMP fasting. Due on due Goal H&P. Due on due Goal Lipid Panel. Due on due Goal BMP fasting. Due on due Goal Urinalysis. Due on due Goal H&P. Due on due Goal Lipid Panel. Due on due Goal Lipid Panel. Due on due Goal Urinalysis. Due on due Goal H&P. Due on due Goal BMP fasting. Due on due Goal Lipid Panel. Due on due Goal BMP fasting. Due on due Goal H&P. Due on due Goal Urinalysis. Due on due Goal H&P. Due on due Goal Urinalysis. Due on due Goal BMP fasting. Due on due Goal Lipid Panel. Due on due Goal H&P. Due on due Goal BMP fasting. Due on due Goal Lipid Panel. Due on due Goal Urinalysis. Due on due Goal BMP fasting. Due on due Goal H&P. Due on due Goal Urinalysis. Due on due Goal Lipid Panel. Due on 015 due Goal H&P. Due on due Goal Urinalysis. Due on due Goal BMP fasting. Due on due Goal BMP fasting. Due on due Goal Urinalysis. Due on due Goal H&P. Due on due Goal H&P. Due on due Goal BMP fasting. Due on due Goal Urinalysis. Due on due Goal H&P. Due on due Goal Urinalysis. Due on due Goal BMP fasting. Due on due Goal H&P. Due on due Goal BMP fasting. Due on due Goal Urinalysis. Due on due Goal Urinalysis. Due on due Goal H&P. Due on due Goal BMP fasting. Due on due Goal H&P. Due on due Goal Urinalysis. Due on due Goal BMP fasting. Due on due Goal H&P. Due on due Goal Urinalysis. Due on due Goal BMP fasting. Due on due Goal Urinalysis. Due on due Goal H&P. Due on due Goal BMP fasting. Due on 010 due Goal H&P. Due on due Goal TD Vaccine. Due on 10 due Goal Lipid Panel. Due on due Goal BMP fasting. Due on due Goal Urinalysis. Due on 10 due Goal Tobacco cessation counseling completed Referral Referred To: [facility] Ordered: Referrals: Orthopedics. [facility]. Location: [facility]. Evaluate and treat Appointment date/timeframe: 08/13/2023 ordered Referral Referred To: [facility] Cardiology [address] [facility] [address], [place], [phone] Ordered: Referrals: Cardiology. [facility] Cardiology. Location: [facility]. Evaluate and treat ordered Referral Referred To: [facility] [address], [place], [phone] Ordered: Referrals: Colonoscopy. [facility] Colonoscopy. Location: [facility] ordered Referral Referred To: ENT hearing specialists Ordered: Referrals: ENT. [facility]. Location: [facility]. Follow-up and treat Appointment date/timeframe: 06/18/2023 ordered Referral Referred To: [facility] ENT Private Ins/Medicaid [address], [place], [phone] Ordered: Referrals: ENT. [facility] ENT Private Ins/Medicaid. Evaluate and treat ordered Referral Ordered: Referrals: [facility]dependent. Location: [facility]. Evaluate and treat Appointment date/timeframe: 03/13/2023 ordered Referral Referred To: [facility] ENT [address] [place], [phone] Ordered: Referrals: ENT. [facility] ENT. Location: [facility]. Evaluate and treat ordered Referral Referred To: [facility] Colonoscopy/Endoscopy [address] [place], [address] [phone] Ordered: Referrals: Colonoscopy. [facility] Colonoscopy/Endoscopy. Location: [facility] ordered Referral Referred To: [facility] Pulmonary [address] [place], [address] [phone] Ordered: Referrals: Pulmonary. [facility] Pulmonary. Location: [facility]. Evaluate and treat ordered Referral Referred To: [facility] Card Echo-Doppler/Stress [address] [facility]
[place], [phone] Ordered: Referrals: Cardiology. [facility] Card Echo-Doppler/Stress. Location: [facility]. Diagnostic testing Appointment date/timeframe: 03/04/2019 ordered Referral Ordered: Referrals: Colonoscopy. Location: [facility]. Diagnostic testing ordered Referral Ordered: Referrals: Hepatology. Location: [facility]. Evaluate and treat Appointment date/timeframe: 02/22/2017 ordered Referral Ordered: Referrals: Otolaryngology. Location: [facility]. Evaluate and treat Appointment date/timeframe: 06/12/2016 ordered Referral Referred To: [facility] Colonoscopy [address] [facility]
[address], [place], [phone] Ordered: Referrals: Colonoscopy. [facility] Colonoscopy. Diagnostic testing Appointment date/timeframe: 05/18/2014 ordered Referral Referred To: [facility] Ordered: Referral: [facility]. Behavioral Health. Evaluate and treat. Appointment date/timeframe: 1 Week ordered Patient Education Asthma Attack: Care Ins tructions completed Patient Education Asthma in Adul ts: Care Instructions completed Patient Education Learning About Asthma T fabi completed Patient Education Managing Your Allergies: Care Instructions completed Patient Education Allergies: Care Instruc tions completed Future Order: Lab Order FIT/Hemo sure ([id number]), Scheduled for: Ordered Future Order: Lab Order Comprehe nsive Metabolic Panel ([id number]), Ordered on: Ordered Future Order: Lab Order CBC (inc ludes Differential and Platelets) ([id number]), Ordered on: Ordered Future Order: Lab Order Lipid Pa ramirez ([id number]), Ordered on: Ordered Future Order: Lab Order PSA Tota l ([id number]), Ordered on: Ordered Future Order: Lab Order TSH with Reflex to Free T4 ([id number]), Ordered on: Ordered Future Order: Lab Order Urinalys is with Reflex to Microscopic ([id number]), Ordered on: Ordered Future Order: Lab Order Hemoglob in A1c ([id number]), Ordered on: Ordered Future Order: Radiology Order Ch est: 2 Views PA, Lat ([id number]), Ordered on: Ordered Future Order: Radiology Order Ch est; 2 views ([id number]), Ordered on: Ordered Future Order: Lab Order URINALYS IS, MACROSCOPIC ([id number]), Appointment on: , Collected on: , Sent on: Sent Future Order: Lab Order POC HEMO GLOBIN A1C ([id number]), Appointment on: , Collected on: , Sent on: Sent Future Order: Lab Order LIPID PA RAMIREZ ([id number]), Appointment on: , Collected on: , Sent on: Sent Future Order: Lab Order CBC (H/H , RBC, INDICES, WBC, PLT) ([id number]), Appointment on: , Collected on: , Sent on: Sent Future Order: Lab Order TSH, 3RD GENERATION ([id number]), Appointment on: , Collected on: , Sent on: Sent Future Order: Lab Order COMPREHE NSIVE METABOLIC PANEL W/EGFR ([id number]), Appointment on: , Sent on: Sent Future Order: Lab Order HEPATITI S PANEL, ACUTE W/REFLEX ([id number]), Appointment on: , Collected on: , Sent on: Sent Nutrition Recommendation Nutrition therap y completed History Of Present Illness Encounter Date Complaint History Of Prese nt Illness discussion of the issues patient presenting s/p [facility] --went thru detox--[id number] days being soberENT--[facility] waiting to do a cochlear implantdespondent states--h/o depressionpatient needs psychiatryasthma--needs inhalersstates [facility]--uses google translate to communicate and read what is spoken discussion of the labs patient p resenting to discuss the labast=36cxray=HH--LSS--scoliosisfacet arthropathy assessment patient presenti for assessmentanxietydepressionetoh for yearscongenital hearing deficitsreads lipslow back painlives in a shelterasthmaPTSD?/son left him in pastAction program for AlcoholismENT [facility]--seeing and working on the hearing deficitshad covid vaccinhad flu shotcolonoscopy--needstobacco blurry vision The 63 Year old male presents for evaluation of blurry vision in the right eye and left eye. It started about 6 month(s) ago. It affects both near and far vision. The symptom is constant. The condition is mild. Wears +2.00 OTC readers only. Vision seems dimmer.. s/p [facility] hospital 2 m onths ago patient presenting for assessments/p U URI--need recordsasthmachronic hearing deficit --needs hearing checkeye needcolonoscopytobaccoetoh [facility] ED visit 07/05/22 for COPD - COPD vs asthma exacerbation- CXR showi ng chronic hyperinflation, given duonebs, d/c'd with TRUDY and prednisone 50mg PO QDAY x5d- per patient, feeling better- was on Advair prior, not taken xyrs, was using TRUDY TID/QID prior to recent ED visit- does report allergy sx as well discussion patient was cont actedstates he has been doing wellself isolationno COVIDstill drinking etohneeds medsneeds bloodworkflu shot [facility] [place]--hard to come herelabs mail to [id number] minutes spent with patient ,assessment,plans DSE Cardiovascular Review The patien t has symptoms suggestive of atypical chest pain. Mr. Muñiz has SOB and CRUMP. Mr. Muñiz has not had palpitations, syncope or near syncope. He denies claudication. There is no discoloration or ulceration of the lower extremities. He has had no TIA or stroke-like symptoms. The patient has no symptoms attributable to valvular heart disease. abnormal EKG WITH CH EST PAIN Pt is referred to Cardiology for Recurre nt Atypical CP. EKG has baseline abnormalities and non-specific ST and T wave We will do DSE and review. assessment patient presenti juanita for assessmentstates still drinking daily etohneeds his medslabscolonoscopy--did not doasthma--h/o tobaccooccasional chest pain h/o asthma--tobacco The symptoms began 20 years ago and generally lasts 20 Years. The symptoms are reported as being mild. The symptoms occur constantly. The location is asthma. Aggravating factors include in past tobacco. Relieving factors include uses inhalers. He states the symptoms are chronic and are controlled. Patient would like a flu shot--does not smoke at this time--is hard of hearing h/o asthma--tobacco (comments) tobacco --etoh flu shot flashes of light The 56 years ol d male presents for evaluation of flashes of light in the right eye and left eye. It started about 2 year(s) ago. The onset was gradual. It affects OU. The symptom is constant. It occurs with no pattern. The condition is mild. BP: 108/78 discussion of labs patient prese nting for labs and discussion--ALT=85--HLQ=131--fhjxrmk states he is an alcoholic,drinks quart of vodka/day,has tried to quit in past,has not been able to,at present want s to maintain what he is doing,agrees to see hepatology--eye clinic--ENT also left leg infection/trauma The sy mptoms began 4 weeks ago and generally lasts 4 Weeks. The symptoms are reported as being moderate. The symptoms occur constantly. The location is left leg tibia. Aggravating factors include infection. Relieving factors include went to [facility] last week. He states the symptoms are acute and have improved. Patient states was hospitalized overnight,xrays he states showed old fracture of the left ankle??bone infection--sprained ankle s/p ER [facility] The sy mptoms began 3 days ago and generally lasts 3 Days. The symptoms are reported as being moderate. The symptoms occur constantly. The location is [facility]. Aggravating factors include fell on the street,off a ledge and hit a park bench--left tibia pierced. Relieving factors include ER assessed and was dressed and sent home. He states the symptoms are acute and have worsened. musculoskeletal pain (comments) Mr. Muñiz is a 56 year old man PMH EtO H abuse, tobacco abuse, and COPD who presents with leg swelling. He was drinking and fell on 08/03. Since that time he has noticed increased leg swelling over the past couple of weeks. At first he just noticed a scratch over his leg. However, subsequently a lesion appeared and began to grow at that site. Then another lesion appeared underneath the first. His ankle swelled almost instantly but he has not noticed any pain at that site whatsoever. 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 Here today for 2 new concerns:1- anxiety- comes and goes, short lasting, and unpredictable. Wants something to take prn.2- itchy rash on torso- lots of scratching. Thinks it could be shinges. Has been present on and off for several months. ETOHism, MDD and asthma Last see n in 12/2014.Has lost most of his hearing, reading lips now.Drinking only wine now. Otherwise, no new issues from last appt here, and no changes in any of pt's chronic medical conditions.There have been no visits to the ER or hospital admissions.Compliant with medication. ETOHism, MDD and asthma Last see n 3 mo ago.Has not been meeting with Jessica Hong since last visit.Trying to cut down on his drinking. No new issues from last appt here, and no changes in any of pt's chronic medical conditions.There have been no visits to the ER or hospital admissions.Compliant with medication. ETOHism, MDD, asthma Last seen a bout 5 mo ago.Currently meeting with Jessica Brenner, contemplating entering a tx program. Otherwise, no new issues from last appt here, and no changes in any of pt's chronic medical conditions.There have been no visits to the ER or hospital admissions.Compliant with medication. Pt needs rescue inhaler no more than twice weekly.No nighttime awakenings.No trouble with ADLs 2/2 asthma. ETOHism, MDD Last seen 3 mo a go for initial visit.Interval hx:Still actively drinking daily, all day long.Ready to enter tx program- has been meeting with Jessica Hong.C/o persistent depressed mood for last 1-2 months.No S.I. or H.I.No H.I, hallucinations, manic sx, or paranoid thoughts.Did well on bupropion in the past, bust has not taken in several years.No h/o seizures. substance abuse substance abuse Ppd Reading otitis media Pertinent negati ves include cough, fever, insomnia, irritability and malaise. otitis media (comments) PMH of E TOHism, actively drinking.Initial visit with this provider; last seen 1 mo ago- given amoxil for R OM, but took it sporadically, still having drainage from ear. establish care Mr. Muñiz pres ents today smelling of alcohol and clearly mildly intoxicated, although pleasantly soHe states I want to be checked for diabetes and I think I may have cancer - the latter because he occasionally vomitsEndorses chronic cough productive of non-bloody sputum. 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 Styles 08/24/22- requesting [facility] Pulm referral, will submit PRN Related to Asthma Interested in COVID booster #2- will defer given recent ED visit for asthma exacerbation Related to Encounter for immunization - start cetirizine 1 0mg PO once a day only as needed for allergy symptom Related to Allergic rhinitis Prescribed activity/ exercise education Related to Body mass index (BMI) 22.0-22.9, adult - See 1 Related to Regul ar astigmatism, left eye - See 1 Related to Presb yopia - Patient was given Rx to get glasses at today't visit. Educated patient for FTW. RTC 1 year to monitor hyperopia, astigmatism, and presbyopia. Related to Hypermetropia, bilateral - Patient was educat ed to decrease drinking and to improve nutrition. Patient was also edcuated to get more sleep, and improve diet. RTC 1 year to monitor. Pt educated on findings and educated on signs/symptoms and to rtc prn if any changes. Related to Nutritional deficiency -it seems to me that you have an infection and almost certainly a severely sprained ankle-please go to the ED to have this checked; they will likely jose guadalupe this and also give antibiotics -come see us after your visit-please be aware that not going could end in worsening of this infection and include blood stream infection and even if left untreated long enough Related to Other biomechanical lesions of lower extremity -we will not be perf orming any additional labs at this time, but these could be performed at your next visit-deferred routine screening as well -please return to see us after your ED visit Related to Encounter for general adult medical examination without abnormal findings -we will continue yo ur current medications without change Related to Major depressive disorder, single episode, unspecified Take all of your med ications, call the clinic with any questions. Related to Encounter for screening for malignant neoplasm of colon Take all of your med ications, call the clinic with any questions. Related to Encounter for screening for malignant neoplasm of colon Take all of your med ications, call the clinic with any questions. Related to Alcohol abuse Take all of your med ications, call the clinic with any questions. Related to Asthma Take all of your med ications, call the clinic with any questions. Related to Alcohol abuse Take all of your med ications, call the clinic with any questions. Related to MDD Take all of your med ications, call the clinic with any questions. Related to SCREENING-PULMONARY TB Take amoxicillin for 10 days Rel ated to Otitis media If they continue to bother you, we can discuss medications Related to Hemorrhoids Check screening HIV, syphilis, and diabetes testsReferred for colonoscopy Flu shot, tetanus shot, pneumonia vaccine given todayReturn to clinic in 2-3 months Related to Routine general medical examination at a health care facility Try taking celecoxib for back pain. OK to take Tylenol too, but do not take ibuprofen, Motrin, Aleve, naproxen Related to Chronic low back pain You need to reduce y our alcohol intakeWe will talk further at next visit Related to Alcohol abuse Fungus in fingers an d toesContinue to use [id number] topical agentIf not improving, we can consider a pill Related to Onychomycosis We will check a chest x-ray toda y Related to Cough As per patient privacy policy some of the clinical information may not be visible. Assessments Type Assessment Date No Information Patient Care Teams Name Effective Dates (start - stop) Status Members No Information
--- OUTSIDE RECORDS SUMMARY | 2024-09-08 17:09 | XMS_ITS | Clinical Summary ---
Author Organization [facility] Address [address] [place] [address] Care Team Providers Care Upsetter Setter Up Name Role Phone [facility] Primary Care Provider Source Comments [facility],non-owned Affiliates and Associated Physician Practices is amultiple site organization consisting of ambulatory clinics and hospital sitesin [place], [place], [place] and [place]. This disclosure is being madepursuant to the Care Everywhere program and may not contain all information available regarding this patient. Last updated 18.[facility] [employer] Allergies No known active allergies Medications * Be aware that medications may not be up to date on this document. Alwaysverify current medications with the patient. albuterol HFA (ProAir HFA) 108 (90 Base) MCG/ACT inhaler Inhale 2 (two) puffs by mouth every 4 hours as needed for Shortness of Breath, Wheezing or Cough 8.5 g 3 Active Social History Tobacco Use Types Packs/Day Years Used Date Smoking Tobacco: Former Cigarettes Smokeless Tobacco: Current Chew Tobacco Cessation:Ready to Q uit: Not Asked; Counseling Given: Not Answered Alcohol Use Standard Drinks/Week Comments Yes 0 (1 standard drink = 0.6 oz pur e alcohol) everyday vodka Sex and Gender Information Value Date Recorded Sex Assigned at Not on file Legal Sex Male 7:29 PM [employer]NA[employer] Gender Identity Not on file Sexual Orientation Not on file Last Filed Vital Signs Vital Sign Reading Time Taken Comments Blood Pressure 127/89 07/05/2022 4:53 AM CDT Pulse 98 07/05/2022 4:53 AM CDT Temperature 36.6 C (97.8 F) 07/04/2022 10:41 PM CDT Respiratory Rate 18 07/05/2022 4:53 AM CDT Oxygen Saturation 93% 07/05/2022 4:53 AM CDT Inhaled Oxygen Concentration - - Weight - - Height - - Body Mass Index - - Plan of Treatment Health Maintenance Due Date Last Done Comments COLOGUARD (AGES 45-75) - COL ON CA SCREENING 1961 COLON MONITORING 1961 COLONOSCOPY - COLON CA SCREENING 1961 CT COLONOGRAPHY - COLON CA SCREENING 1961 Colorectal Cancer Screening 1961 FIT - COLON CA SCREENING 1961 FLEX SIG - COLON CA SCREENING 1961 MEDICARE AWV 12 MONTHS 1961 HIV SCREENING 02/28/1976 HEPATITIS C SCREENING 02/23/1979 DTAP/TDAP/TD VACCINES (1 - Tdap) 02/28/1980 PNEUMOCOCCAL VACCINE 50+ (1 of 1 - PCV) 2011 ZOSTER VACCINE (1 of 2) 2011 COVID-19 VACCINE (1 - 2023-2 5 season) 2023 LIPID TESTING 12/18/2023 12/17/2018 DEPRESSION SCREENING 04/16/2024 INFLUENZA VACCINE (Season Ended) 2024 Respiratory Syncytial Virus (RSV) Vaccine Pt: or over 60 yrs (1 - 1-dose 75+ series) 02/28/2036 HEPATITIS B VACCINE Aged Out No longe r eligible based on patient's age to complete this topic HIB VACCINE Aged Out No longer eligi ble based on patient's age to complete this topic HPV VACCINE Aged Out No longer eligi ble based on patient's age to complete this topic MENINGOCOCCAL (Group B) VACC INE SHARED DECISION-MAKING Aged Out No longer eligibl e based on patient's age to complete this topic MENINGOCOCCAL GROUPS A/C/Y/W VACCINE Aged Out No longer eligible b ased on patient's age to complete this topic Insurance MEDICARE Care Teams Upsetter Setter Up Relationship Specialty Start Date End Date [facility] [address] [place] [address] PCP - General 07/05/22
--- OUTSIDE RECORDS SUMMARY | 2024-09-08 21:09 | XMS_ITS | Continuity of Care Document ---
Author Organization [employer] [facility] Address [address] [place] [address] Phone Care Team Providers Care Clearance Center Manager Name Role Phone Deejay Styles MD Unavailable [...] Encounter [facility], [address], [place], [place], [address] , tel: [phone] [facility] [place] No Information 5 Stephani Villalba. [address], [place], [place], [address], . tel:[phone] [facility], [address], [place], [place], [address] , tel: [phone] T [facility] No Information 4 Pelon Martinez. [address], [place], [place], [address], . tel:[phone] [facility], [address], [place], [place], [address] , tel: [phone] [facility] No Information 4 Management Case. [address], [place], [place], [address], . tel:[phone] [facility], [address], [place], [place], [address] , tel: [phone] [facility] No Information 4 Management Case. [address], [place], [place], [address], . tel:[phone] [facility], [address], [place], [place], [address] , tel: [phone] [facility] No Information 4 Management Case. [address], [place], [place], [address], [place]. tel:[phone] [facility], [address], [place], [address] [place] [address] , [place] tel: [phone] [facility] No Information 4 Management Case. [address], [place], [address] [place] [address], [place]. tel:[phone] [facility], [address], [place], [place], [address] , [place] tel: [phone] [facility] No Information 4 Management Case. [address], [place], [address] [place] [address], [place]. tel:[phone] NTRPROF WARMHANDOFF 5/>MIN [facility], [address], [place], [place], [address] , [place] tel: [phone] [facility] Major depressive disorder, single episode, unspecifiedS uicidal ideations 4 Pelon Martinez. [address], [place], [place], [address], [place]. 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 [address], [place], [place], [address], [place]. tel:[phone] Referring Provider: Deejay Styles, [address], [place], [address]. tel:[phone] [facility], [address], [place], [place], [address] , [place] tel: [phone] [facility] No Information 4 Management Case. [address], [place], [place], [address], [place]. tel:[phone] [facility], [address], [place], [place], [address] , [place] tel:[phone] [facility] No Information Dec-0 4 Management Case. [address], [place], [address] [place] [address], [place]. tel:[phone] [facility], [address], [place], [place], [address] , tel:[phone] [facility] No Information Dec-0 4 Management Case. [address], [place], [address] [place] [address], [place]. tel:[phone] [facility], [address], [place], [address] [place] [address] , tel: [phone] [facility] No Information Dec-0 4 Management Case. [address], [place], [address] [place] [address], [place]. tel:[phone] [facility], [address], [place], [address] [place] [address] , [place] tel:[phone] [facility] No Information Mar-0 4 Management Case. [address], [place], [address] [place] [address], [place]. tel:[phone] [facility], [address], [place], [place], [address] , [place] tel: [phone] [facility] No Information 4 Management Case. [address], [place], [address] [place] [address], [place]. tel:[phone] Consulting Provider: Case Management, [address], [place], [address]. tel:[phone] [facility], [address], [place], [place], [address] , [place] tel:[phone] [facility] [place] No Information Jun-0 4 Pelon Martinez. [address], [place], [address] [place] [address], [place]. tel:[phone] OFFICE/OUTPATI ENT VISIT, EST [facility], [address], [place], [place], [address] , tel: [phone] [facility] [place] discussion of the labs (chief complaint) ScoliosisArt hropathy 4 Stephani Villalba. [address], [place], [address] [place] [address], . tel:[phone] Referring Provider: Deejay Styles, [address], [place], [address] [place] [address]. tel:[phone] [facility], [address], [place], [address] [place] [address] , tel: [phone] [facility] [place] No Information 4 Pelon Martinez. [address], [place], [address] [place] [address], . tel:[phone] [facility], [address], [place], [address] [place] [address] , tel: [phone] [facility] No Information 4 Stephani Villalba. [address], [place], [address] [place] [address], . tel:[phone] Referring Provider: Deejay Styles, [address], [place], [address] [place] [address]. tel:[phone] [facility], [address], [place], [address] [place] [address] , tel: [phone] [facility] No Information 4 Pelon Martinez. [address], [place], [address] [place] [address], . 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 [address], [place], [place], [address], . tel:[phone] Referring Provider: Deejay Styles, [address], [place], [address]. tel:[phone] OFFICE/OUTPATI ENT VISIT, NEW [facility], [address], [place], [place], [address] , [place] tel:[phone] [facility] blurry vision (chief complaint)bl urry vision (chief complaint) Hypermetropi a, bilateralPre sbyopiaOther age-related cataractCent ral serous chorioretino landon, left eyeNutrition al deficiency, unspecified 3 Shruti Cisneros. [address], [place], [place], [address], . tel:[phone] Referring Provider: Amelia Bahena, [address], [place], [address]. 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 [address], [place], [place], [address], [place]. tel:[phone] Referring Provider: Deejay Styles, [address], [place], [address]. 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 [address], [place], [place], [address], . tel:[phone] Referring Provider: Deejay Styles, [address], [place], [address]. tel:[phone] OFFICE OUTPT EST 25 MIN [facility], [address], [place], [place], [address] , [place] tel: [phone] [facility] ED visit 07/05/22 for COPD (chief complaint) AsthmaAllerg ic rhinitisEnco unter for immunization 3 No Information OFFICE/OUTPATI ENT VISIT, EST [facility], [address], [place], [place], [address] , [place] tel: [phone] [facility] [place] discussion (chief complaint) AnxietyEncou nter for screening, unspecified 0 Stephani Villalba. [address], [place], [place], [address], [place]. tel:[phone] Referring Provider: Deejay Styles, [address], [place], [address]. tel:[phone] OFFICE/OUTPATI ENT VISIT, EST [facility], [address], [place], [place], [address] , [place] tel: [phone] [facility] abnormal EKG WITH CHEST PAIN (chief complaint)DS E (chief complaint)Ca rdiovascular Review (chief complaint) Chest pain 9 No Information OFFICE/OUTPATI ENT VISIT, EST [facility], [address], [place], [place], [address] , [place] tel: [phone] [facility] [place] assessment (chief complaint) Body mass index (BMI) 22.0-22.9, adultEncount er for adult annual physical exam w/ abnormal findingsEnco unter for screening for malignant neoplasm of colonAnxiety Hearing lossAsthmaCh est painAbnormal ECGEncounter for screening for other disorder 9 Stephani Villalba. [address], [place], [place], [address], . tel:[phone] Referring Provider: Deejay Styles, [address], [place], [address]. 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 [address], [place], [place], [address], [place]. tel:[phone] Referring Provider: Deejay Styles, [address], [place], [address]. tel:[phone] OFFICE/OUTPATI ENT VISIT, NEW [facility], [address], [place], [place], [address] , [place] tel: [phone] [facility] flashes of light (chief complaint)fl ashes of light (chief complaint) Hypermetropi a, bilateralReg ular astigmatism, left eyePresbyopi aNutritional deficiency 7 Moriah Alejandre. [address], [place], [place], [address], [place]. tel:[phone] Referring Provider: Hill Major, [address], [place], [address]. tel:[phone] OFFICE/OUTPATI ENT VISIT, EST [facility], [address], [place], [place], [address] , tel: [phone] [facility] discussion of labs (chief complaint) Abnormal results of liver function studies 7 Stephani Villalba. [address], [place], [place], [address], [place]. tel:[phone] Referring Provider: Deejay Styles, [address], [place], [address]. tel:[phone] OFFICE OUTPT EST 25 MIN [facility], [address], [place], [place], [address] , [place] tel:[phone] [facility] left leg infection/tr auma (chief complaint) Cellulitis of left leg Stephani Villalba. [address], [place], [place], [address], [place]. tel:[phone] Referring Provider: Deejay Styles, [address], [place], [address]. tel:[phone] OFFICE OUTPT EST 25 MIN [facility], [address], [place], [place], [address] , [place] tel: [phone] [facility] s/p [facility] (chief complaint) Unspecified open wound, left lower leg, sequelaCellu litisPain in left ankle and joints of left foot 7 Stephani Villalba. [address], [place], [place], [address], [place]. tel:[phone] Referring Provider: Deejay Styles [address], [place], [address]. tel:[phone] OFFICE/OUTPATI ENT VISIT, EST [facility], [address], [place], [place], [address] , [place] tel:[phone] [facility] musculoskele chrissy pain (chief complaint) Major depressive disorder, single episode, unspecifiedE ncounter for general adult medical examination without abnormal findingsOthe r biomechanica l lesions of lower extremity 7 Anisha Hoyt. [address], [place], [place], [address], [place]. tel:[phone] Referring Provider: Evelina Lancaster, [address], [place], [address]. 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 [address], [place], [place], [address], . tel:[phone] Referring Provider: Alexa Bryant, [address], [place], [address]. tel:[phone] [facility], [address], [place], [place], [address] , tel: [phone] [facility] [place] No Information 6 Sinks Alexa. [address], [place], [place], [address], . tel:[phone] Referring Provider: Alexa Bryant, [address], [place], [address]. tel:[phone] OFFICE OUTPT EST 25 MIN [facility], [address], [place], [place], [address] , tel: [phone] [facility] ETOHism, MDD and asthma (chief complaint) Major depressive disorder, single episode, unspecifiedA sthmaEncount er for screening for malignant neoplasm of colon 6 No Information OFFICE OUTPT EST 25 MIN [facility], [address], [place], [place], [address] , tel: [phone] [facility] ETOHism, MDD and asthma (chief complaint) MDDAsthmaAlc ohol abuseScreeni ng for alcoholism 5 No Information OFFICE/OUTPATI ENT VISIT, EST [facility], [address], [place], [place], [address] , [place] tel: [phone] [facility] [place] ETOHism, MDD, asthma (chief complaint) MDDAlcohol abuseAsthma 5 No Information [facility], [address], [place], [place], [address] , [place] tel: [phone] [facility] [place] No Information 5 No Information [facility], [address], [place], [place], [address] , [place] tel: [phone] [facility] [place] No Information 5 No Information [facility], [address], [place], [place], [address] , [place] tel: [phone] [facility] No Information 5 No Information OFFICE/OUTPATI ENT VISIT, EST [facility], [address], [place], [place], [address] , [place] tel: [phone] [facility] [place] ETOHism, MDD (chief complaint) Alcohol abuseMDD 5 No Information [facility], [address], [place], [place], [address] , [place] tel: [phone] [facility] substance abuse (chief complaint) No Information 4 No Information [facility], [address], [place], [place], [address] , [place] tel: [phone] [facility] [place] Dental examination 4 No Information [facility], [address], [place], [place], [address] , [place] tel: [phone] [facility] [place] Dental examination 4 Melita Merrill. [address], [place], [place], [address], [place]. tel:[phone] Referring Provider: Garfield Hua, [address], [place], [address]. tel:[phone] [facility], [address], [place], [place], [address] , [place] tel: [phone] [facility] substance abuse (chief complaint) Counseling NOS (Hlth, Education, Advice, Instr) 4 No Information [facility], [address], [place], [place], [address] , [place] tel: [phone] [facility] [place] Dental examination 4 No Information [facility], [address], [place], [place], [address] , [place] tel: [phone] [facility] [place] Dental examination 4 No Information OFFICE O/P EST 5 MIN [facility], [address], [place], [place], [address] , [place] tel: [phone] [facility] [place] Ppd Reading (chief complaint) Unspecified follow-up examination 4 Nurse Registered. [address], [place], [place], [address], . [phone] Referring Provider: Registered Nurse, [address], [place], [address]. tel:[phone] lting Provider: Clari Grant, [address], [place], [address]. tel:[phone] OFFICE/OUTPATI ENT VISIT, EST [facility], [address], [place], [place], [address] , [place] tel: [phone] [facility] [place] otitis media (chief complaint) Screening for cancerSCREEN ING-PULMONAR Y TBOtitis media 4 No Information [facility], [address], [place], [place], [address] , [place] tel: [phone] [facility] [place] Dental examination 4 No Information [facility], [address], [place], [place], [address] , [place] tel: [phone] [facility] [place] No Information 4 No Information OFFICE/OUTPATI ENT VISIT, NEW [facility], [address], [place], [place], [address] , [place] tel: [phone] [facility] establish care (chief complaint) CoughOnychom ycosisAlcoho l abuseChronic low back painRoutine general medical examination at a health care facilityHemo rrhoidsOtiti s media 4 No Information [facility], [address], [place], [place], [address] , tel: [phone] [facility] [place] Dental examination 4 Melita Merrill. [address], [place], [place], [address], . tel:[phone] Referring Provider: Garfield Hua [address], [place], [address]. tel:[phone] [facility], [address], [place], [place], [address] , tel: [phone] [facility] [place] Dental examination 4 No Information [facility], [address], [place], [place], [address] , tel: [phone] [facility] [place] Dental examination 4 Melita Merrill. [address], [place], [place], [address], . [phone] Referring Provider: Garfield Hua [address], [place], [address]. tel:[phone] [facility], [address], [place], [place], [address] , tel: [phone] DO NOT USE [facility] Dental examination 2 No Information OFFICE OUTPT EST 25 MIN [facility], [address], [place], [place], [address] , tel: [phone] [facility] physical exam (chief complaint)Bi lateral Hearing Loss (chief complaint)he adache (chief complaint)de pression (chief complaint) Routine general medical examination at a health care facilityEdem aUnspecified hearing lossNeed for prophylactic vaccination with unspecified combined vaccineUnspe cified adjustment reactionRout ine general medical examination at a health care facility 0 No Information Zara roberts, [address], [place], [place], [address] , [place] tel:[phone] DO NOT USE [facility] No Information 0 No Information HOME VST EST PT LOW TO MOD SEVERITY Zara roberts, [address], [place], [place], [address] , [place] tel: [phone] [facility] verifr appt (chief complaint)de ntal referral (chief [...] Record Payers Payer name Insurance type Covered green party ID Authoriza tion(s) Medicare PPS MB [id number] Medicare PPS MB [id number] Medicare PPS MB [id number] Social History Type Description Quantity Date Captured Comments Alcohol Use Details Unknown Caffeine Use Details Unknown Tobacco Use Status No Information Smoking Status No Information Sex Male Sexual Orientation Straight or heterosexual Dec Gender Identity Male Chief Complaint And Reason For Visit No Information Reason For Referral Reason For Referral No Information Plan Of Treatment Date Type Action Status Goal Dental Exam. Due on due Goal Tdap/TD Vaccine. Due on due Goal Lipid Panel. Due on due Goal PSA. Due on due Goal Colonoscopy. Due on due Goal STI Testing (Exc lude or Hold if not at risk). Due on due Goal H&P. Due on due Goal Advanced Care Pl anning Discussed(document in Advance Directives). Due on due Goal Low-Dose CT Lung Screen. Due on due Goal Glucose or Hemog lobin A1c. Due on due Goal Zoster Vaccine. Due on due Goal Pneumococcal Vac cine. Due on due Goal Eye Exam. Due on due Goal Covid-19 Vaccine . Due on due Goal Influenza Vaccin e. Due on due Goal FIT-DNA (Cologua rd). Due on due Goal FIT/Hemosure. Due on 2024 due Goal Eye Exam. Due on due Goal Tdap/TD Vaccine. Due on due Goal FIT-DNA (Cologua rd). Due on due Goal Low-Dose CT Lung Screen. Due on due Goal Dental Exam. Due on 024 due Goal FIT/Hemosure. Due on 2023 due Goal Glucose or Hemog lobin A1c. Due on due Goal PSA. Due on due Goal Lipid Panel. Due on due Goal STI Testing (Exc lude or Hold if not at risk). Due on due Goal H&P. Due on due Goal Covid-19 Vaccine . Due on due Goal Advanced Care Pl anning Discussed(document in Advance Directives). Due on due Goal Pneumococcal Vac cine. Due on due Goal Influenza Vaccin e. Due on due Goal Colonoscopy. Due on due Goal Zoster Vaccine. Due [...] Goal Eye Exam. Due on due Goal Lipid Panel. Due on due Goal STI Testing (Exc lude or Hold if not at risk). Due on due Goal Influenza Vaccin e. Due on due Goal FIT/Hemosure. Due on 2023 due Goal Dental Exam. Due on due Goal Colonoscopy. Due on due Goal Eye Exam. Due on due Goal Pneumococcal Vac cine. Due on due Goal PSA. Due on [...] due Goal CT-Colonography. Due on due Goal Colonoscopy. Due on [...] C scre ening. Due on due Goal Influenza vaccin e. Due on due Goal H&P. Due on due Goal Colonoscopy. Due on due Goal Colonoscopy. Due on [...] 10 due Goal Lipid Panel. Due on 010 due Goal Urinalysis. Due on 10 due Goal BMP fasting. Due on due Goal Tobacco cessation counseling completed Referral Referred To: [facility] Ordered: Referrals: Orthopedics. [facility]. Location: [facility]. Evaluate and treat Appointment date/timeframe: 08/13/2023 ordered Referral Referred To: [facility] Colonoscopy [address], [place], [phone] Ordered: Referrals: Colonoscopy. [facility] Colonoscopy. Location: [facility] ordered Referral Referred To: [facility] Cardiology [address], [place], [phone] Ordered: Referrals: Cardiology. [facility] Cardiology. Location: [facility]. Evaluate and treat ordered Referral Referred To: ENT hearing specialists Ordered: Referrals: ENT. E[facility] hearing specialists. Location: [facility]. Follow-up and treat Appointment date/timeframe: 06/18/2023 ordered Referral Referred To: [facility] ENT Private Ins/Medicaid [address], [place], [phone] Ordered: Referrals: ENT. [facility] ENT Private Ins/Medicaid. Evaluate and treat ordered Referral Referred To: [facility] ENT [address] [place], [phone] Ordered: Referrals: ENT. [facility] ENT. Location: [facility]. Evaluate and treat ordered Referral Referred To: [facility] Colonoscopy/Endoscopy [address] [place], [phone] Ordered: Referrals: Colonoscopy. [facility] Colonoscopy/Endoscopy. Location: [facility] ordered Referral Referred To: [facility] [address] [place], [phone] Ordered: Referrals: Pulmonary. [facility] Pulmonary. Location: [facility]. Evaluate and treat ordered Referral Ordered: Referrals: [facility]/Independent. Location: [facility]. Evaluate and treat Appointment date/timeframe: 03/13/2023 ordered Referral Referred To: [facility] Card Echo-Doppler/Stress [address] [facility]
[place], [phone] Ordered: Referrals: Cardiology. [facility] Card Echo-Doppler/Stress. Location: [facility]. Diagnostic testing Appointment date/timeframe: 03/04/2019 ordered Referral Ordered: Referrals: Colonoscopy. Location: [facility]. Diagnostic testing ordered Referral Ordered: Referrals: Hepatology. Location: [facility]. Evaluate and treat Appointment date/timeframe: 02/22/2017 ordered Referral Ordered: Referrals: Otolaryngology. Location: [facility]. Evaluate and treat Appointment date/timeframe: 06/12/2016 ordered Referral Referred To: [facility] Colonoscopy [address] [facility]
[address], [place], [phone] Ordered: Referrals: Colonoscopy. [facility] Colonoscopy. Diagnostic testing Appointment date/timeframe: 05/18/2014 ordered [...] Order: Lab Order Comprehe nsive Metabolic Panel ([id number]), Ordered on: Ordered Future Order: Lab Order CBC (inc ludes Differential and Platelets) ([id number]), Ordered on: Ordered Future Order: Lab Order Lipid Pa ramirez ([id number]), Ordered on: Ordered Future Order: Lab Order PSA Tota l ([id number]), Ordered on: Ordered Future Order: Lab Order TSH with Reflex to Free T4 ([id number]), Ordered on: Ordered Future Order: Lab Order Urinalys is with Reflex to Microscopic ([id number]), Ordered on: Ordered Future Order: Lab Order Hemoglob in A1c ([id number]), Ordered on: Ordered Future Order: Radiology Order Ch est: 2 Views PA, Lat ([id number]), Ordered on: Ordered Future Order: Radiology Order Ch est; 2 views ([id number]), Ordered on: Ordered Future Order: Lab Order URINALYS IS, MACROSCOPIC ([id number]), Appointment on: , Collected on: , Sent on: Sent Future Order: Lab Order POC HEMO GLOBIN A1C ([id number]), Appointment on: , Collected on: , Sent on: Sent Future Order: Lab Order LIPID PA RAMIREZ ([id number]), Appointment on: , Collected on: , Sent on: Sent Future Order: Lab Order CBC (H/H , RBC, INDICES, WBC, PLT) ([id number]), Appointment on: , Collected on: , Sent on: Sent Future Order: Lab Order TSH, 3RD GENERATION ([id number]), Appointment on: , Collected on: , Sent on: Sent Future Order: Lab Order COMPREHE NSIVE METABOLIC PANEL W/EGFR ([id number]), Appointment on: , Sent on: Sent Future Order: Lab Order HEPATITI S PANEL, ACUTE W/REFLEX ([id number]), Appointment on: , Collected on: , Sent on: Sent Nutrition Recommendation Nutrition therap y completed History Of Present Illness Encounter Date Complaint History Of Prese nt Illness discussion of the issues patient presenting s/p [facility] --went thru detox--[id number] days being soberENT--[facility] waiting to do a cochlear implantdespondent states--h/o depressionpatient needs psychiatryasthma--needs inhalersstates [facility]--uses google translate to communicate and read what is spoken discussion of the labs patient p resenting to discuss the labast=36cxray=HH--LSS--scoliosisfacet arthropathy assessment patient presenti for assessmentanxietydepressionetoh for yearscongenital hearing deficitsreads lipslow back painlives in a shelterasthmaPTSD?/son left him in pastLocal [facility]eters program [facility]ismENT [facility]--seeing and working on the hearing deficitshad covid vaccinhad flu shotcolonoscopy--needstobacco blurry vision The 63 Year old male presents for evaluation of blurry vision in the right eye and left eye. It started about 6 month(s) ago. It affects both near and far vision. The symptom is constant. The condition is mild. Wears +2.00 OTC readers only. Vision seems dimmer.. s/p [facility] hospital 2 m onths ago patient presenting for assessments/p U URI--need recordsasthmachronic hearing deficit --needs hearing checkeye needcolonoscopytobaccoetoh [facility] ED visit 07/05/22 for COPD - COPD [...] etohneeds medsneeds bloodworkflu shot will get [facility] [place]--hard to come herelabs mail to [id number] minutes spent with patient ,assessment,plans DSE Cardiovascular [...] labs patient prese nting for labs and discussion--ALT=85--BUS=947--iyorlum states he is an alcoholic,drinks quart of [...] include infection. Relieving factors include went to [facility] last week. He states the symptoms are acute and have improved. Patient states was hospitalized overnight,xrays he states showed old fracture of the left ankle??bone infection--sprained ankle s/p ER [facility] The sy mptoms began 3 days ago and generally lasts 3 Days. The symptoms are reported as being moderate. The symptoms occur constantly. The location is [facility]. 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 Educated patient for FTW. RTC 1 year to monitor hyperopia, astigmatism, and presbyopia. Related to Hypermetropia, bilateral - See 1 Related to Regul ar astigmatism, left eye - See 1 Related to Presb yopia - Patient was educat ed to decrease [...] in fingers an d toesContinue to use [id number] topical agentIf not improving, we can consider a pill Related to Onychomycosis We will check a chest x-ray toda y Related to Cough As per patient privacy policy some of the clinical information may not be visible. Assessments Type Assessment Date No Information Patient Care Teams Name Effective Dates (start - stop) Status Members No Information
--- OUTSIDE RECORDS SUMMARY | 2024-09-08 21:09 | XMS_ITS | Referral Summary ---
Author Organization [facility] al Address [address] [place] [address] Care Team Providers Care Triage Licensed Practical Nurse Name Role Phone Deejay Styles MD Unavailable [phone] Encounters Date Type Department Care Team Description 07/05/2024 1:07 PM CDT - 07/06/2024 2:00 PM CDT Hospital Encounter [facility] [address] [place] [id number] Fantasma Burnett MD Wallace, MD Didier Swift, [...] vamping, 3. Triggering allergins in his new nursing home ( reports breathing worse since moving to new nursing home in March) -admitted for asthma exacerbation -was given nebs, started on steroids -pt reports breathing is back to baseline, C/w Breoellipta and steroids x 4 days -educated on vaping cessation -discussed need to follow up with PCP, referral to [facility] placed -ready for discharge Homelessness 03/05/2024 Assessment & Plan (03/05/2024 2:44 PM SPECIALIZED LANGUAGE INSTRUCTOR): SW helped provide resources for nursing home (see note on 03/04) Moderate protein-calorie malnutrition 03/03/2024 Dehydration 03/01/2024 Assessment & Plan (03/03/2024 4:59 PM SPECIALIZED LANGUAGE INSTRUCTOR): Pt with mild hyponatremia and AGMA related to lactic acidosis/starvation ketosis, expect from dehydration and etoh use. Resolved and now tolerating PO intake without issue. Suicidal ideation 03/01/2024 Assessment & Plan (03/05/2024 2:44 PM SPECIALIZED LANGUAGE INSTRUCTOR): Presented to Ed with SI, has multiple [...] for shelters including extended motel accomodations (see URGENT CARE PHYSICIAN note on 03/04) Alcohol abuse 03/01/2024 Assessment & Plan (03/05/2024 2:42 PM SPECIALIZED LANGUAGE INSTRUCTOR): Drinks 1/5 daily of vodka, which he [...] and sent referrals to residential treatments centers, [facility] and places for people, [facility] (See URGENT CARE PHYSICIAN notes on 03/04) CRUMP (dyspnea on exertion) [...] 03/27/2017 Assessment & Plan (03/01/2024 9:23 AM SPECIALIZED LANGUAGE INSTRUCTOR): Unclear hx, he is not sure either. 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 73 m2 Comment: [...] MD LAB BLOOD ORDERABLES Final Resu lt [facility] Department [place] [address] * (ABNORMAL) Differential, auto (07/06/2024 5:46 AM CDT) Pathologist [facility] [place] Neutrophil abs 11.2(H) 1.5 - 6.5 K/cumm Imm gran abs 0.1 0.0 - 0.1 K/cumm [facility] Lymphocyte abs 1.1 0.8 - 3.3 K/cumm [facility] Monocyte abs 0.9(H) 0.2 - 0.8 K/cumm [facility] Eosinophil abs 0.1 0.0 - 0.5 K/cumm [facility] Basophil abs 0.0 0.0 - 0.1 K/cumm [facility] Neutrophil pct 83.4 % [facility] Comment: Interpretive Data Percent cell count reference ranges are not reported, since discordance with absolute values may lead to misinterpretation of CBC data. Current Interpretive Data was last revised on 2017. Imm gran pct 0.6 % [facility] Comment: Interpretive Data Percent cell count reference ranges are not reported, since discordance with absolute values may lead to misinterpretation of CBC data. Current Interpretive Data was last revised on 2017. Lymphocyte pct 8.3 % [facility] Comment: Interpretive Data Percent cell count reference ranges are not reported, since discordance with absolute values may lead to misinterpretation of CBC data. Current Interpretive Data was last revised on 2017. Monocyte pct 6.7 % [facility] Comment: Interpretive Data Percent cell count reference ranges are not reported, since discordance with absolute values may lead to misinterpretation of CBC data. Current Interpretive Data was last revised on 2017. Eosinophil pct 0.7 % [facility] Comment: Interpretive Data Percent cell count reference ranges are not reported, since discordance with absolute values may lead to misinterpretation of CBC data. Current Interpretive Data was last revised on 2017. Basophil pct 0.3 % [facility] Comment: Interpretive Data Percent cell count reference ranges are not reported, since discordance with absolute values may lead to misinterpretation of CBC data. Current Interpretive Data was last revised on 2017. Blood 07/06/2024 5:46 AM CDT 07/06/2024 6:01 AM CDT us Sandra Cuevas MD LAB BLOOD ORDERABLES Final Resu lt [facility] Department [place] [address] * (ABNORMAL) CBC with auto differential (07/06/2024 5:46 AM CDT) WBC 13.4(H) 3.8 - 9.9 K/cumm Hgb 11.9(L) 13.0 - 17.5 g/dL [facility] Hct 35.0(L) 38.9 - 50.3 % [facility] Plt 338 150 - 400 K/cumm [facility] MPV 9.1 9.1 - 12.3 fL [facility] RBC 3.93(L) 4.30 - 5.80 M/cumm [facility] MCV 89.1 81.3 - 96.4 fL [facility] MCH 30.3 27.1 - 33.3 pg [facility] MCHC 34.0 32.3 - 35.7 g/dL [facility] RDW CV 14.2 11.1 - 14.9 % [facility] RDW SD 46.3 35.7 - 48.1 fL [facility] NRBC abs 0.00 0.00 - 0.01 K/cumm [facility] Blood 07/06/2024 5:46 AM CDT 07/06/2024 6:01 AM CDT us Sandra Cuevas MD LAB BLOOD ORDERABLES Final Resu lt [facility] Department [place] [address] * (ABNORMAL) Basic metabolic panel (07/06/2024 5:46 AM CDT) Sodium 140 135 - 145 mmol/L Potassium, pl 4.5 3.3 - 4.9 mmol/L [facility] Chloride 107 97 - 110 mmol/L [facility] CO2 24 22 - 32 mmol/L [facility] Anion gap 9 2 - 15 mmol/L [facility] BUN 12 6 - 25 mg/dL [facility] Creatinine 0.70(L) 0.80 - 1.30 mg/dL [facility] Glucose 143 70 - 199 mg/dL [facility] Comment: Interpretive Data Fasting glucose >/= 126 [...] 2022. Calcium 8.9 8.5 - 10.3 mg/dL [facility] Blood 07/06/2024 5:46 AM CDT 07/06/2024 6:01 AM CDT us Sandra Cuevas MD LAB BLOOD ORDERABLES Final Resu lt [facility] Department [place] [address] * (ABNORMAL) Drugs of Abuse Screen, Urine with Reflex Confirmation (07/06/2024 4:37 AM CDT) Pathologist [facility] [place] Amphetamine, ur Not Detected CutOff 500ng/mL Comment: Interpretive Data - Amphetamines: Samples containing greater than 500 ng/mL d-methamphetamine or other cross-reacting amphetamine compounds are reported as positive. Amphetamine immunoassays are subject to significant false positive rates due to cross-reactivity of non-amphetamine drugs. Confirmatory testing required for definitive results. Current Interpretive Data was last reviewed 2022. Barbiturates, ur Not Detected CutOff 200ng/mL [facility] Comment: Interpretive Data - Barbiturates: Samples containing greater than 200 ng/mL secobarbital or other cross-reacting barbiturate compounds are reported as positive. False positive and false negative results are possible. Confirmatory testing required for definitive results. Current Interpretive Data was last reviewed 2022. Benzodiazepines, ur Not Detected CutOff 100ng/mL [facility] Comment: Interpretive Data - Benzodiazepines: Samples containing greater than 100 ng/mL nordiazepam or other cross-reacting compounds are reported as positive. False positive and false negative results are possible. Confirmatory testing required for definitive results. Current Interpretive Data was last reviewed 2022. Cannabinoids, ur Screen Positive, presumptive (A) CutOff 50 ng/mL [facility] Comment: Interpretive Data - Cannabinoids: Samples containing [...] Methadone, ur Not Detected CutOff 300ng/mL [facility] Comment: Interpretive Data - Methadone: Samples containing [...] last reviewed 2022. Urine Creatinine 79 mg/dL [facility] Comment: Interpretive Data Urine Creatinine: < 10 mg/dL is extremely dilute = or > 10 but < 20 mg/dL is dilute = or > 20 mg/dL is normal Current Interpretive Data was last revised on 2017. Urine 07/06/2024 4:37 AM CDT 07/06/2024 4:50 AM CDT Narrative [facility] - 07/06/2024 5:21 AM CDT Drug of Abuse screening is performed by immunoassay for medical purposes only. This is not to be used for Pain Management purposes. If Detected, confirmation testing will be performed for Amphetamines, Cocaine, Fentanyl, Methadone, Opiates, Oxycodone or Phencyclidine. Sandra Cuevas MD LAB URINE ORDERABLES Final Resu lt Performing Organization Address City/[facility] Co de Phone Number [facility] Department [place] [address] * Troponin I high-sensitivity 2-hour (07/05/2024 3:33 PM CDT) Trop I hs <4 <=35 ng/L Comment: Interpretive Data For further hscTnI resources including the diagnostic algorithm and an aid in interpretation, copy and paste this link: https://bjhlab.testcatalog.org/show/hsTrop-1 Current Interpretive Data last revised 2019. Trop I hs delta 0 ng/L [facility] Trop I hs interp Insignificant [facility] Blood 07/05/2024 3:33 PM CDT 07/05/2024 3:43 PM CDT Zakiya Lopez MD LAB BLOOD ORDERABLES Fin al Result Performing Organization Address [facility]/ZIP Co de Phone Number [facility] Department [place] [address] * Respiratory pathogen panel Nasopharyngeal (07/05/2024 2:04 PM CDT) Pathologist [facility] [place] Influenza A RNA Not Detected Not Detected Influenza B RNA Not Detected Not Detected [facility] RSV RNA Not Detected Not Detected [facility] COVID-19 RNA Not Detected Not Detected [facility] Coronavirus 229E RNA Not Detected Not Detected [facility] Coronavirus HKU1 RNA Not Detected Not Detected [facility] Coronavirus NL63 RNA Not Detected Not Detected [facility] Coronavirus OC43 RNA Not Detected Not Detected [facility] Adenovirus DNA Not Detected Not Detected [facility] Metapneumovirus RNA Not Detected Not Detected [facility] Rhinovirus/Enterov irus RNA Not Detected Not Detected [facility] Parainfluenza 1 RNA Not Detected Not Detected [facility] Parainfluenza 2 RNA Not Detected Not Detected [facility] Parainfluenza 3 RNA Not Detected Not Detected [facility] Parainfluenza 4 RNA Not Detected Not Detected [facility] B. pertussis DNA Not Detected Not Detected [facility] B. parapertussis DNA Not Detected Not Detected [facility] C. pneumoniae DNA Not Detected Not Detected [facility] M. pneumoniae DNA Not Detected Not Detected [facility] Nasopharyngeal 07/05/2024 2: 04 PM CDT 07/05/2024 2:12 PM CDT Narrative [facility] - 07/05/2024 3:43 PM CDT Is the Patient experiencing symptoms consistent with COVID?->Yes Surveillance testing for transplant patient?->No Interpretive Data The [employer] FilmArray Respiratory Panel (RP2.1) assay is a [...] assay has FDA clearance for testing of INSPECTOR CASING swabs. The performance of additional specimen types has been assessed by the performing laboratory. The performance characteristics of this assay have been determined by [facility] Molecular Infectious Disease Laboratory. Current interpretive data was last revised on 22. Zakiya Lopez MD LAB MICROBIOLOGY - [facility] ORDERABLES Final Result [facility] Department [place] [address] * XR Chest PA Lateral 2 Views [...] 12-LEAD (07/05/2024 1:57 PM CDT) Narrative [facility] - 07/05/2024 1:57 PM CDT Fantasma [...] in the ED Fantasma Burnett MD 07/05/24 [id number] us Fantasma Burnett MD ECG ORDERABLES Final Resu lt [facility] * Troponin I high-sensitivity series (baseline, 2hr, 4hr, 6hr) (07/05/2024 1:33 PM CDT) [facility] Trop I hs <4 <=35 ng/L Comment: Interpretive Data For further hscTnI resources including the diagnostic algorithm and an aid in interpretation, copy and paste this link: https://bjhlab.testcatalog.org/show/hsTrop-1 Current Interpretive Data last revised 2019. Blood 07/05/2024 1:33 PM CDT 07/05/2024 1:37 PM CDT us Fantasma Burnett MD LAB BLOOD ORDERABLES Final Result [facility] Department [place] [address] * eGFR (07/05/2024 1:33 PM CDT) [facility] eGFR >90 >=60 mL/min/1. 73 m2 [...] MD LAB BLOOD ORDERABLES Fin al Result [facility] Department of Laboratories [place], [place] [id number] * (ABNORMAL) Differential, auto (07/05/2024 1:33 PM CDT) Neutrophil abs 5.4 1.5 - 6.5 K/cumm Imm gran abs 0.0 0.0 - 0.1 K/cumm [facility] Lymphocyte abs 1.4 0.8 - 3.3 K/cumm [facility] Monocyte abs 0.7 0.2 - 0.8 K/cumm [facility] Eosinophil abs 1.2(H) 0.0 - 0.5 K/cumm [facility] Basophil abs 0.1 0.0 - 0.1 K/cumm [facility] Neutrophil pct 60.6 % [facility] Comment: Interpretive Data Percent cell count reference ranges are not reported, since discordance with absolute values may lead to misinterpretation of CBC data. Current Interpretive Data was last revised on 2017. Imm gran pct 0.5 % [facility] Comment: Interpretive Data Percent cell count reference ranges are not reported, since discordance with absolute values may lead to misinterpretation of CBC data. Current Interpretive Data was last revised on 2017. Lymphocyte pct 15.9 % [facility] Comment: Interpretive Data Percent cell count reference ranges are not reported, since discordance with absolute values may lead to misinterpretation of CBC data. Current Interpretive Data was last revised on 2017. Monocyte pct 8.2 % [facility] Comment: Interpretive Data Percent cell count reference ranges are not reported, since discordance with absolute values may lead to misinterpretation of CBC data. Current Interpretive Data was last revised on 2017. Eosinophil pct 13.7 % [facility] Comment: Interpretive Data Percent cell count reference ranges are not reported, since discordance with absolute values may lead to misinterpretation of CBC data. Current Interpretive Data was last revised on 2017. Basophil pct 1.1 % [facility] Comment: Interpretive Data Percent cell count reference ranges are not reported, since discordance with absolute values may lead to misinterpretation of CBC data. Current Interpretive Data was last revised on 2017. Blood 07/05/2024 1:33 PM CDT 07/05/2024 1:37 PM CDT us Fantasma Burnett MD LAB BLOOD ORDERABLES Final Result Performing Organization Address City/State/[facility] Co de Phone Number [facility] Department [place] [address] * CBC with auto differential (07/05/2024 1:33 PM CDT) WBC 8.9 3.8 - 9.9 K/cumm Hgb 13.8 13.0 - 17.5 g/dL [facility] Hct 40.5 38.9 - 50.3 % [facility] Plt 370 150 - 400 K/cumm [facility] MPV 9.1 9.1 - 12.3 fL [facility] RBC 4.53 4.30 - 5.80 M/cumm [facility] MCV 89.4 81.3 - 96.4 fL [facility] MCH 30.5 27.1 - 33.3 pg [facility] MCHC 34.1 32.3 - 35.7 g/dL [facility] RDW CV 13.9 11.1 - 14.9 % [facility] RDW SD 45.7 35.7 - 48.1 fL [facility] NRBC abs 0.00 0.00 - 0.01 K/cumm [facility] Blood 07/05/2024 1:33 PM CDT 07/05/2024 1:37 PM CDT us Fantasma Burnett MD LAB BLOOD ORDERABLES Final Result [facility] Department [place] [address] * (ABNORMAL) Comprehensive metabolic panel (07/05/2024 1:33 PM CDT) Pathologist [facility] [place] Sodium 141 135 - 145 mmol/L Potassium, pl 4.3 3.3 - 4.9 mmol/L [facility] Chloride 102 97 - 110 mmol/L [facility] CO2 26 22 - 32 mmol/L [facility] Anion gap 13 2 - 15 mmol/L [facility] BUN 8 6 - 25 mg/dL [facility] Creatinine 0.70(L) 0.80 - 1.30 mg/dL [facility] Glucose 130 70 - 199 mg/dL [facility] Comment: Interpretive Data Fasting glucose >/= 126 [...] AST 23 10 - 50 Units/L [facility] Blood 07/05/2024 1:33 PM CDT 07/05/2024 1:37 PM CDT us Fantasma Burnett MD LAB BLOOD ORDERABLES Final Result [facility] Department [place] [address] * Hepatitis C antibody Blood (03/01/2024 8:53 PM SPECIALIZED LANGUAGE INSTRUCTOR) Hep C Ab Nonreactive Nonreactive Comment:Antibodies to HCV no t detected. Does NOT exclude the possibility of recent exposure to HCV. Current interpretive data was last revised on 21 Blood 03/01/2024 8:53 PM SPECIALIZED LANGUAGE INSTRUCTOR 03/01/2024 9:16 PM SPECIALIZED LANGUAGE INSTRUCTOR us Garcia Limon MD LAB MICROBIOLOGY - GENERAL ORD ERABLES Final Result [facility] Department of Laboratories [place], [place] [id number] from Last 3 Months or Most Recently Relevant to Health Maintenance Insurance [place] Advance Directives For more information, please contact: [phone] * Full Code (Latest Code Status on File) Date Activated Date Inactivated Comments 07/05/2024 10:03 PM 07/06/2024 6:11 PM * Full Code Date Activated Date Inactivated Comments 03/01/2024 9:16 AM 03/06/2024 10:04 AM Care Teams Triage Licensed Practical Nurse Relationship Specialty Start Date End Date Deejay Styles MD [address] [place] [address] Referring Physician Internal Medicine 07/02/23
--- OUTSIDE RECORDS SUMMARY | 2024-09-08 21:10 | XMS_ITS | Clinical Summary ---
Author Organization [facility] Address [address] [place] [address] Care Team Providers Care Patient Accounts Specialist Name Role Phone [facility] Primary Care Provider Source Comments [facility],non-owned Affiliates and Associated Physician Practices is amultiple site organization consisting of ambulatory clinics and hospital sitesin [place], [place], [place] and [place]. This disclosure is being madepursuant to the Care Everywhere program and may not contain all information available regarding this patient. 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
--- OUTSIDE RECORDS SUMMARY | 2024-09-08 21:10 | XMS_ITS | Encounter Summary ---
Author Organization [facility] Address [address] [place] [address] Care Team Providers Care Lead Tank Mechanic Name Role Phone Asad Torres MD Primary Care Provider [phone] Asad Gaines MD Primary Care Provider [phone] Deejay Styles MD Unavailable [phone] Reason for Visit * Reason Onset Date Comments READY TO SCHEDULED 05/11/2023 Encounter Details Date Type Department Care Team (Late st Contact Info) Description 05/11/2023 Telephone [facility] Specialty Services [address] [place] [address] Miscellaneous, Not In File READY TO SCHEDULED [...] on file 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 Gender Identity Not on file Sexual Orientation Not on file documented as of this encounter Plan of Treatment Not on file documented as of this encounter Visit Diagnoses Not on filedocumented in this encounter Additional Health Concerns Infection Onset Date Last Indicated Resolved Time COVID: Suspected 07/05/2024 07/05/2024 07/05/2024 3:44 PM CDT documented as of this encounter Care Teams Lead Tank Mechanic Relationship Specialty Start Date End Date Asad Torres MD PCP - General 04/03/17 06/07/23 Asad Gaines MD PCP - General Family Medicine 06/08/23 06/17/23 Deejay Styles MD [address] [place] [address] Referring Physician Internal Medicine 07/02/23 documented as of this encounter
--- OUTSIDE RECORDS SUMMARY | 2024-09-08 21:10 | XMS_ITS | Clinical Summary ---
Author Organization [facility] al Address [address] [place] [address] Care Team Providers Care Former Hand Name Role Phone Deejay Styles MD Unavailable [phone] Allergies Active Allergy Reactions Criticality Noted Date [...] vamping, 3. Triggering allergins in his new [facility] ( reports breathing worse since moving to [facility] in March) -admitted for asthma exacerbation -was given nebs, started on steroids -pt reports breathing is back to baseline, C/w Breoellipta and steroids x 4 days -educated on vaping cessation -discussed need to follow up with PCP, referral to [facility] placed -ready for discharge Homelessness 03/05/2024 Assessment & Plan (03/05/2024 2:44 PM ACCOUNTS RECEIVABLE ADMINISTRATOR): SW helped provide resources for [facility] (see note on 03/04) Moderate protein-calorie malnutrition 03/03/2024 Dehydration 03/01/2024 Assessment & Plan (03/03/2024 4:59 PM ACCOUNTS RECEIVABLE ADMINISTRATOR): Pt with mild hyponatremia and AGMA related to lactic acidosis/starvation ketosis, expect from dehydration and etoh use. Resolved and now tolerating PO intake without issue. Suicidal ideation 03/01/2024 Assessment & Plan (03/05/2024 2:44 PM ACCOUNTS RECEIVABLE ADMINISTRATOR): Presented to [facility] with SI, has multiple [...] for shelters including extended motel accomodations (see PRINCIPAL ASSOCIATE note on 03/04) Alcohol abuse 03/01/2024 Assessment & Plan (03/05/2024 2:42 PM ACCOUNTS RECEIVABLE ADMINISTRATOR): Drinks 1/5 daily of vodka, which he [...] and sent referrals to residential treatments centers, [facility] and places for people, [facility] (See PRINCIPAL ASSOCIATE notes on 03/04) CRUMP (dyspnea on exertion) [...] 03/27/2017 Assessment & Plan (03/01/2024 9:23 AM ACCOUNTS RECEIVABLE ADMINISTRATOR): Unclear hx, he is not sure either. 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 Does not know sign language Encounters Date Type Department Care Team Description 07/05/2024 1:07 PM CDT - 07/06/2024 2:00 PM CDT Hospital Encounter [facility] [address] [place] [address] Fantasma Burnett MD Wallace, MD Didier Swift, [...] Months Surgical History Surgery Date Site/Laterality Comments CT APPENDECTOMY Appendectomy - (Added by TW Conv) [...] on file Legal Sex Male 2:58 AM ACCOUNTS RECEIVABLE ADMINISTRATOR Gender Identity Not on file Sexual Orientation [...] HEPATITIS C ANTIBODY Routine 03/01/2024 8:53 PM ACCOUNTS RECEIVABLE ADMINISTRATOR from Last 3 Months or Most Recently [...] MD LAB BLOOD ORDERABLES Final Resu lt [facility] Department [place] [address] * (ABNORMAL) Differential, auto (07/06/2024 5:46 AM CDT) Neutrophil abs 11.2(H) 1.5 - 6.5 K/cumm Imm gran abs 0.1 0.0 - 0.1 K/cumm [facility] Lymphocyte abs 1.1 0.8 - 3.3 K/cumm [facility] Monocyte abs 0.9(H) 0.2 - 0.8 K/cumm [facility] Eosinophil abs 0.1 0.0 - 0.5 K/cumm [facility] Basophil abs 0.0 0.0 - 0.1 K/cumm [facility] Neutrophil pct 83.4 % [facility] Comment: Interpretive Data Percent cell count reference ranges are not reported, since discordance with absolute values may lead to misinterpretation of CBC data. Current Interpretive Data was last revised on 2017. Imm gran pct 0.6 % [facility] Comment: Interpretive Data Percent cell count reference ranges are not reported, since discordance with absolute values may lead to misinterpretation of CBC data. Current Interpretive Data was last revised on 2017. Lymphocyte pct 8.3 % [facility] Comment: Interpretive Data Percent cell count reference ranges are not reported, since discordance with absolute values may lead to misinterpretation of CBC data. Current Interpretive Data was last revised on 2017. Monocyte pct 6.7 % [facility] Comment: Interpretive Data Percent cell count reference ranges are not reported, since discordance with absolute values may lead to misinterpretation of CBC data. Current Interpretive Data was last revised on 2017. Eosinophil pct 0.7 % [facility] Comment: Interpretive Data Percent cell count reference ranges are not reported, since discordance with absolute values may lead to misinterpretation of CBC data. Current Interpretive Data was last revised on 2017. Basophil pct 0.3 % [facility] Comment: Interpretive Data Percent cell count reference ranges are not reported, since discordance with absolute values may lead to misinterpretation of CBC data. Current Interpretive Data was last revised on 2017. Blood 07/06/2024 5:46 AM CDT 07/06/2024 6:01 AM CDT us Sandra Cuevas MD LAB BLOOD ORDERABLES Final Resu lt [facility] Department [place] [address] * (ABNORMAL) CBC with auto differential (07/06/2024 5:46 AM CDT) WBC 13.4(H) 3.8 - 9.9 K/cumm Hgb 11.9(L) 13.0 - 17.5 g/dL [facility] Hct 35.0(L) 38.9 - 50.3 % [facility] Plt 338 150 - 400 K/cumm [facility] MPV 9.1 9.1 - 12.3 fL [facility] RBC 3.93(L) 4.30 - 5.80 M/cumm [facility] MCV 89.1 81.3 - 96.4 fL [facility] MCH 30.3 27.1 - 33.3 pg [facility] MCHC 34.0 32.3 - 35.7 g/dL [facility] RDW CV 14.2 11.1 - 14.9 % [facility] RDW SD 46.3 35.7 - 48.1 fL [facility] NRBC abs 0.00 0.00 - 0.01 K/cumm [facility] Blood 07/06/2024 5:46 AM CDT 07/06/2024 6:01 AM CDT us Sandra Cuevas MD LAB BLOOD ORDERABLES Final Resu lt [facility] Department [place] [address] * (ABNORMAL) Basic metabolic panel (07/06/2024 5:46 AM CDT) Sodium 140 135 - 145 mmol/L Potassium, pl 4.5 3.3 - 4.9 mmol/L [facility] Chloride 107 97 - 110 mmol/L [facility] CO2 24 22 - 32 mmol/L [facility] Anion gap 9 2 - 15 mmol/L [facility] BUN 12 6 - 25 mg/dL [facility] Creatinine 0.70(L) 0.80 - 1.30 mg/dL [facility] Glucose 143 70 - 199 mg/dL [facility] Comment: Interpretive Data Fasting glucose >/= 126 [...] Calcium 8.9 8.5 - 10.3 mg/dL [facility] Blood 07/06/2024 5:46 AM CDT 07/06/2024 6:01 AM CDT Sandra Cuevas MD LAB BLOOD ORDERABLES Final Resu lt [facility] Department [place] [address] * (ABNORMAL) Drugs of Abuse Screen, Urine [...] Barbiturates, ur Not Detected CutOff 200ng/mL [facility] Comment: Interpretive Data - Barbiturates: Samples containing greater than 200 ng/mL secobarbital or other cross-reacting barbiturate compounds are reported as positive. False positive and false negative results are possible. Confirmatory testing required for definitive results. Current Interpretive Data was last reviewed 2022. Benzodiazepines, ur Not Detected CutOff 100ng/mL [facility] Comment: Interpretive Data - Benzodiazepines: Samples containing greater than 100 ng/mL nordiazepam or other cross-reacting compounds are reported as positive. False positive and false negative results are possible. Confirmatory testing required for definitive results. Current Interpretive Data was last reviewed 2022. Cannabinoids, ur Screen Positive, presumptive (A) CutOff 50 ng/mL [facility] Comment: Interpretive Data - Cannabinoids: Samples containing greater than 50 ng/mL delta-9 THC -COOH or other cross- reacting compounds are reported as positive. False positive and false negative results are possible. Confirmatory testing required for definitive results. Current Interpretive Data was last reviewed 2022. Cocaine, ur Not Detected CutOff 150ng/mL [facility] Comment: Interpretive Data - Cocaine: Samples containing greater than 150 ng/mL benzoylecgonine or other cross- reacting compounds are reported as positive. False positive and false negative results are possible. Confirmatory testing required for definitive results. Current Interpretive Data was last reviewed 2022. Fentanyl, Ur Not Detected CutOff 5 ng/mL [facility] Comment: Interpretive Data - Fentanyl: Samples containing greater than 5 ng/mL norfentanyl, fentanyl, or other cross-reacting fentanyl compounds are reported as positive. False positive and false negative results are possible. Confirmatory testing required for definitive results. Current Interpretive Data was last reviewed 2023. Methadone, ur Not Detected CutOff 300ng/mL [facility] Comment: Interpretive Data - Methadone: Samples containing greater than 300 ng/mL d,l-methadone or other cross-reacting compounds are reported as positive. False positive and false negative results are possible. Confirmatory testing required for definitive results. Current Interpretive Data was last reviewed 2022. Opiates, ur Not Detected CutOff 300ng/mL [facility] Comment: Interpretive Data - Opiates: Samples containing greater than 300 ng/mL morphine or other cross-reacting compounds are reported as positive. False positive and false negative results are possible. Confirmatory testing required for definitive results. Current Interpretive Data was last reviewed 2022. Oxycodone, ur Not Detected CutOff 100ng/mL [facility] Comment: Interpretive Data - Oxycodone: Samples containing greater than 100 ng/mL oxycodone or other cross-reacting compounds are reported as positive. False positive and false negative results are possible. Confirmatory testing required for definitive results. Current Interpretive Data was last reviewed 2022. Phencyclidine, ur Not Detected CutOff 25 ng/mL [facility] Comment: Interpretive Data - Phencyclidine: Samples containing greater than 25 ng/mL phencyclidine or other cross-reacting compounds are reported as positive. False positive and false negative results are possible. Confirmatory testing required for definitive results. Current Interpretive Data was last reviewed 2022. Urine Creatinine 79 mg/dL [facility] Comment: Interpretive Data Urine Creatinine: < 10 mg/dL is extremely dilute = or > 10 but < 20 mg/dL is dilute = or > 20 mg/dL is normal Current Interpretive Data was last revised on 2017. Urine 07/06/2024 4:37 AM CDT 07/06/2024 4:50 AM CDT Narrative [facility] - 07/06/2024 5:21 AM CDT Drug of Abuse screening is performed by immunoassay for medical purposes only. This is not to be used for Pain Management purposes. If Detected, confirmation testing will be performed for Amphetamines, Cocaine, Fentanyl, Methadone, Opiates, Oxycodone or Phencyclidine. Sandra Cuevas MD LAB URINE ORDERABLES Final Resu lt Performing Organization Address [facility] de Phone Number [facility] Department [place] [employer] [place] [address] * Troponin I high-sensitivity 2-hour (07/05/2024 3:33 PM CDT) [facility] Trop I hs <4 <=35 ng/L Comment: Interpretive Data For further [facility] resources including the diagnostic algorithm and an aid in interpretation, copy and paste this link: [email or web address] Current Interpretive Data last revised 2019. Trop I hs delta 0 ng/L [facility] Trop I hs interp Insignificant [facility] Blood 07/05/2024 3:33 PM CDT 07/05/2024 3:43 PM CDT Result [facility] Zakiya Lopez MD LAB BLOOD ORDERABLES Fin al Result Performing Organization Address [facility] de Phone Number [facility] [place] [address] * Respiratory pathogen panel Nasopharyngeal (07/05/2024 2:04 PM CDT) [facility] Influenza A RNA Not Detected Not Detected Influenza B RNA Not Detected Not Detected [facility] RSV RNA Not Detected Not Detected [facility] COVID-19 RNA Not Detected Not Detected [facility] Coronavirus 229E RNA Not Detected Not Detected [facility] Coronavirus HKU1 RNA Not Detected Not Detected [facility] Coronavirus NL63 RNA Not Detected Not Detected [facility] Coronavirus OC43 RNA Not Detected Not Detected [facility] Adenovirus DNA Not Detected Not Detected [facility] Metapneumovirus RNA Not Detected Not Detected [facility] Rhinovirus/Enterov irus RNA Not Detected Not Detected [facility] Parainfluenza 1 RNA Not Detected Not Detected [facility] Parainfluenza 2 RNA Not Detected Not Detected [facility] Parainfluenza 3 RNA Not Detected Not Detected [facility] Parainfluenza 4 RNA Not Detected Not Detected [facility] B. pertussis DNA Not Detected Not Detected [facility] B. parapertussis DNA Not Detected Not Detected [facility] C. pneumoniae DNA Not Detected Not Detected [facility] M. pneumoniae DNA Not Detected Not Detected [facility] Nasopharyngeal 07/05/2024 2: 04 PM CDT 07/05/2024 2:12 PM CDT Narrative [facility] - 07/05/2024 3:43 PM CDT Is the Patient experiencing symptoms consistent with COVID?->Yes Surveillance testing for transplant patient?->No Interpretive Data The [employer] FilmArray Respiratory Panel (RP2.1) assay is a [...] assay has FDA clearance for testing of DELI CUTTER SLICER swabs. The performance of additional specimen types has been assessed by the performing laboratory. The performance characteristics of this assay have been determined by [facility] Molecular Infectious Disease Laboratory. Current interpretive data was last revised on 22. Zakiya Lopez MD LAB MICROBIOLOGY - [facility] ORDERABLES Final Result [facility] Department [place] [address] * XR Chest PA Lateral 2 Views [...] 12-LEAD (07/05/2024 1:57 PM CDT) Narrative [facility] - 07/05/2024 1:57 PM CDT Fantasma Burnett [...] ORDERABLES Final Resu lt Performing Organization Address City/[facility] Co de Phone Number [facility] * Troponin I high-sensitivity series (baseline, 2hr, 4hr, 6hr) (07/05/2024 1:33 PM CDT) Pathologist [facility] Trop I hs <4 <=35 ng/L Comment: Interpretive Data For further hscTnI resources including the diagnostic algorithm and an aid in interpretation, copy and paste this link: [email or web address] Current Interpretive Data last revised 2019. Blood 07/05/2024 1:33 PM CDT 07/05/2024 1:37 PM CDT us Fantasma Burnett MD LAB BLOOD ORDERABLES Final Result Performing Organization Address [facility] Co de Phone Number [facility] Department [place] [address] * eGFR (07/05/2024 1:33 PM CDT) Pathologist [facility] eGFR >90 >=60 mL/min/1. 73 m2 Comment: [...] MD LAB BLOOD ORDERABLES Fin al Result [facility] Department [place] [address] * (ABNORMAL) Differential, auto (07/05/2024 1:33 PM CDT) Neutrophil abs 5.4 1.5 - 6.5 K/cumm Imm gran abs 0.0 0.0 - 0.1 K/cumm [facility] Lymphocyte abs 1.4 0.8 - 3.3 K/cumm [facility] Monocyte abs 0.7 0.2 - 0.8 K/cumm [facility] Eosinophil abs 1.2(H) 0.0 - 0.5 K/cumm [facility] Basophil abs 0.1 0.0 - 0.1 K/cumm [facility] Neutrophil pct 60.6 % [facility] Comment: Interpretive Data Percent cell count reference ranges are not reported, since discordance with absolute values may lead to misinterpretation of CBC data. Current Interpretive Data was last revised on 2017. Imm gran pct 0.5 % [facility] Comment: Interpretive Data Percent cell count reference ranges are not reported, since discordance with absolute values may lead to misinterpretation of CBC data. Current Interpretive Data was last revised on 2017. Lymphocyte pct 15.9 % [facility] Comment: Interpretive Data Percent cell count reference ranges are not reported, since discordance with absolute values may lead to misinterpretation of CBC data. Current Interpretive Data was last revised on 2017. Monocyte pct 8.2 % [facility] Comment: Interpretive Data Percent cell count reference ranges are not reported, since discordance with absolute values may lead to misinterpretation of CBC data. Current Interpretive Data was last revised on 2017. Eosinophil pct 13.7 % [facility] Comment: Interpretive Data Percent cell count reference ranges are not reported, since discordance with absolute values may lead to misinterpretation of CBC data. Current Interpretive Data was last revised on 2017. Basophil pct 1.1 % [facility] Comment: Interpretive Data Percent cell count reference ranges are not reported, since discordance with absolute values may lead to misinterpretation of CBC data. Current Interpretive Data was last revised on 2017. Blood 07/05/2024 1:33 PM CDT 07/05/2024 1:37 PM CDT Fantasma Burnett MD LAB BLOOD ORDERABLES Final Result [facility] Department [place] [address] * CBC with auto differential (07/05/2024 1:33 PM CDT) WBC 8.9 3.8 - 9.9 K/cumm Hgb 13.8 13.0 - 17.5 g/dL [facility] Hct 40.5 38.9 - 50.3 % [facility] Plt 370 150 - 400 K/cumm [facility] MPV 9.1 9.1 - 12.3 fL [facility] RBC 4.53 4.30 - 5.80 M/cumm [facility] MCV 89.4 81.3 - 96.4 fL [facility] MCH 30.5 27.1 - 33.3 pg [facility] MCHC 34.1 32.3 - 35.7 g/dL [facility] RDW CV 13.9 11.1 - 14.9 % [facility] RDW SD 45.7 35.7 - 48.1 fL [facility] NRBC abs 0.00 0.00 - 0.01 K/cumm [facility] Blood 07/05/2024 1:33 PM CDT 07/05/2024 1:37 PM CDT us Fantasma Burnett MD LAB BLOOD ORDERABLES Final Result [facility] Department [place] [address] * (ABNORMAL) Comprehensive metabolic panel (07/05/2024 1:33 PM CDT) Sodium 141 135 - 145 mmol/L Potassium, pl 4.3 3.3 - 4.9 mmol/L [facility] Chloride 102 97 - 110 mmol/L [facility] CO2 26 22 - 32 mmol/L [facility] Anion gap 13 2 - 15 mmol/L [facility] BUN 8 6 - 25 mg/dL [facility] Creatinine 0.70(L) 0.80 - 1.30 mg/dL [facility] Glucose 130 70 - 199 mg/dL [facility] Comment: Interpretive Data Fasting glucose >/= 126 [...] 2022. Calcium 9.3 8.5 - 10.3 mg/dL [facility] Bilirubin, total 0.2 0.1 - 1.2 mg/dL [facility] Protein, pl 7.8 6.5 - 8.5 g/dL [facility] Albumin 4.0 3.5 - 5.0 g/dL [facility] Alk phos 115 40 - 130 Units/L [facility] ALT 10 7 - 55 Units/L [facility] AST 23 10 - 50 Units/L [facility] Blood 07/05/2024 1:33 PM CDT 07/05/2024 1:37 PM CDT us Fantasma Burnett MD LAB BLOOD ORDERABLES Final Result Performing Organization Address [facility] Co de Phone Number [facility] Department [place] [address] * Hepatitis C antibody Blood (03/01/2024 8:53 PM ACCOUNTS RECEIVABLE ADMINISTRATOR) Hep C Ab Nonreactive Nonreactive Comment:Antibodies to HCV no t detected. Does NOT exclude the possibility of recent exposure to HCV. Current interpretive data was last revised on 21 Blood 03/01/2024 8:53 PM ACCOUNTS RECEIVABLE ADMINISTRATOR 03/01/2024 9:16 PM ACCOUNTS RECEIVABLE ADMINISTRATOR us Garcia Limon MD LAB MICROBIOLOGY - GENERAL ORD ERABLES Final Result Performing Organization Address [facility] Co de Phone Number [facility] Department [place] [address] from Last 3 Months or Most Recently Relevant to Health Maintenance Insurance [place] Advance Directives For more information, please contact: [phone] * Full Code (Latest Code Status on File) Date Activated Date Inactivated Comments 07/05/2024 10:03 PM 07/06/2024 6:11 PM * Full Code Date Activated Date Inactivated Comments 03/01/2024 9:16 AM 03/06/2024 10:04 AM Care Teams Former Hand Relationship Specialty Start Date End Date Deejay Styles MD [address] [place] [address] Referring Physician Internal Medicine 07/02/23
--- NOTE | 2024-09-08 21:24 | ECG_ITS ---
Test Date: 2024-09-08 21:47:38 Measurements Intervals [place] Rate: 96 P: 61 ND: 166 QRS: -39 QRSD: 90 T: 46 QT: 353 QTc: 447 Interpretive Statements SINUS RHYTHM POSSIBLE LEFT ATRIAL ENLARGEMENT [-0.1mV P WAVE IN V1/V2] INCOMPLETE RIGHT BUNDLE BRANCH BLOCK POSSIBLE INFERIOR MYOCARDIAL INFARCTION [30 ms Q WAVE IN II/aVF], PROBABLY OLD No previous ECG available for comparison Electronically Signed On 09-09-2024 14:01:50 CDT by Jesus Ram M.D.
--- NOTE | 2024-09-08 21:27 | ED_ITS ---
HPI - SOB/Dyspnea General Chief Complaint: Shortness of Breath/Dyspnea Stated Complaint: SOB, LI Time Seen by Provider: 09/08/24 20:52 History of Present Illness HPI Narrative: Patient is a 64-year-old male who presents to the ER with complaints of difficulty breathing. He reports he went to urgent care yesterday where they gave him prednisone and nebulizer treatment. Patient reports his breathing has become more difficult over the past 24 hours. He reports he has had intermittent periods of confusion, increased mucus, wheezing and chest tightness during this time. Patient reports he has a history of COPD and asthma. Although he no longer smokes cigarettes he is a current vape user. Patient denies any back pain, abdominal pain, recent fevers, lower extremity edema or urinary symptoms. 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 Related Data Allergies Allergy/AdvReac Type Severity Reaction Status Date / Time clindamycin Allergy Severe Swelling Verified 08/15/16 20:11 Review of Systems 2 Review of Systems: All systems reviewed & are unremarkable except as noted in HPI and below Exam 2 Narrative: GENERAL: Well appearing, well-nourished, non-toxic, in no acute distress. HEAD: Normocephalic, atraumatic. NECK: Supple. No adenopathy, no masses. RESPIRATORY: Airway patent, respirations mildly labored. Upper lobes clear to auscultation bilaterally, no rales, rhonchi. Wheezing to bilateral lung bases. CARDIOVASCULAR: Regular rate and rhythm without murmurs, rubs, or gallops. Peripheral pulses 2+ and equal bilaterally. ABDOMINAL: Soft, nontender, nondistended, no hepatosplenomegaly. Normoactive BS. MUSCULOSKELETAL: Moves all extremities. Strength/ROM intact without gross deformities. SKIN: Warm, dry, normal color. No rashes. NEURO: A&O X3. Speech clear. Cranial nerves II-XII intact. No ataxic movements. PSYCHIATRIC: Appropriate mood and affect. Normal interaction. Course Vital Signs Vital signs: Vital Signs Temperature 36.0 C L 09/08/24 17:16 Pulse Rate 82 09/08/24 17:16 Respiratory Rate 18 09/08/24 17:16 Blood Pressure 134/65 09/08/24 17:16 Pulse Oximetry 100 09/08/24 17:16 Temperature 36.8 C 09/08/24 21:00 Pulse Rate 108 H 09/08/24 21:55 Respiratory Rate 20 09/08/24 21:55 Blood Pressure 123/79 09/08/24 21:00 Pulse Oximetry 101 H 09/08/24 21:24 Oxygen Delivery Room Air 09/08/24 21:24 Fraction of Inspired Oxygen 09/08/24 21:24 MDM - SOB/Dyspnea MDM Narrative Medical decision making narrative: Patient is a 64-year-old male who presents to the ER with complaints of difficulty breathing. He reports he went to urgent care yesterday where they gave him prednisone and a nebulizer treatment. Patient reports his breathing has become more difficult over the past 24 hours. He reports he has had intermittent periods of confusion, increased mucus, wheezing and chest tightness during this time. Patient reports he has a history of COPD and asthma. Although he no longer smokes cigarettes he is a current vape user. Patient denies any back pain, abdominal pain, recent fevers, lower extremity edema or urinary symptoms. 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 Labs Ordered: CBC, CMP, D-dimer, lactic acid, PTT, INR, magnesium, BNP Imaging Ordered: Chest x-ray, CTA chest PE Medications Ordered: DuoNeb x2, magnesium IV, Solu-Medrol IV Results: Pt's chest x-ray indicates No acute cardiopulmonary pathology. Pt's CTA chest PE indicates no large or central pulmonary embolism. Evaluation is limited due to suboptimal contrast bolus timing. Consider repeat exam if clinically indicated. Moderate hiatal hernia. Cardiomegaly. Hepatic steatosis. Lungs indicate no focal consolidation, pleural effusion, or pneumothorax. Atelectasis at the lung bases. Mild centrilobular emphysema Diagnosis: COPD exacerbation (no new oxygen requirement) Consults: None necessary Patient Education/Shared MDM: Results of lab work and imaging shared with patient. He endorses improvement of symptoms following medication and duoneb administration. His oxygen saturation did not drop below 99% on room air while in the ER. Patient requesting another duo-neb treatment before discharge. He was strongly advised to follow-up with his PCP as soon as possible. Pt will not be discharged home with any new prescriptions, as he was just given a nebulizer and steroids at urgent care yesterday. Strict return precautions provided. Patient was STRONGLY advised to stop vaping. He verbalized understanding and is in agreement with plan for discharge. Vital signs stable at time of discharge. All questions answered. Differential Diagnosis Differential diagnosis: Likely acute exacerbation of chronic obstructive airways disease, congestive heart failure, community acquired pneumonia, asthma with exacerbation and pulmonary embolism Lab Data Attestation: I reviewed the patient's lab results. 09/08/24 21:35 09/08/24 21:35 Labs: Lab Results 09/08/24 Range/Units 21:35 WBC 8.4 (4.5-10.0) K/mm3 RBC 4.54 L (4.6-6.20) M/mm3 Hgb 13.9 L (14.0-18.0) g/dL Hct 41.4 L (42.0-52.0) % MCV 91.2 (80-100) fl MCH 30.6 (26-34) pg MCHC 33.6 (32-36) g/dl RDW 14.2 (11.5-14.5) % Plt Count 354 (150-375) k/mm3 MPV 8.8 (7.4-10.4) fl Immature Gran % (Auto) 0.4 (0-0.5) % Neut % (Auto) 66.5 (45.5-73.1) % Lymph % (Auto) 12.5 L (18.3-44.2) % [place] % (Auto) 10.8 H (2.6-8.5) % Eos % (Auto) 8.8 H (0-4.4) % Baso % (Auto) 1.0 (0.2-1.2) % Lymph # (Auto) 1.05 (0.9-3.2) K/mm3 Canadian # (Auto) 0.9 H (0.1-0.6) K/mm3 Eos # (Auto) 0.7 H (0-0.3) K/mm3 Baso # (Auto) 0.1 (0.0-0.1) K/mm3 Abs Immat Gran (auto) 0.03 (0.00-0.031) K/mm3 Absolute Neuts (auto) 5.6 (1.3-6.7) K/mm3 Absolute Nucleated RBC 0.000 (0.0-0.012) K/mm3 Nucleated RBC % 0.0 (0.0-0.2) % PT 13.3 (11.1-14.7) Seconds INR 1.0 APTT 27.1 (22.3-36.8) Seconds D-Dimer 0.36 (<0.48) ug/mL Sodium 135 L (137-145) mmol/L Potassium 4.1 (3.4-5.0) mmol/L Chloride 104 (98-107) mmol/L Carbon Dioxide 24 (22-30) mmol/L Anion Gap 7 (4-12) mmol/L BUN 10 (9-20) mg/dL Creatinine 0.56 L (0.7-1.3) mg/dL Estim Creat Clear Calc 117 ml/min Estimated GFR > 60 (59 - ) Glucose 149 H (65-110) mg/dL Lactic Acid 1.0 (0.7-2.0) mmol/L Calcium 8.6 (8.4-10.2) mg/dL Magnesium 2.1 (1.6-2.3) mg/dL Total Bilirubin 0.4 (0.2-1.3) mg/dL AST 32 (17-59) U/L ALT 23 (6-50) U/L Alkaline Phosphatase 87 (38-126) U/L Troponin I < 0.012 (0.000-0.034) ng/mL NT-Pro-B Natriuret Pep 303 H (19.9-100) pg/mL Total Protein 7.0 (6.3-8.2) g/dL Albumin 3.7 (3.5-5.1) g/dL Imaging Data Attestation: I personally reviewed and interpreted this imaging study as follows: Radiologist's impression: Pt's chest x-ray indicates No acute cardiopulmonary pathology. Pt's CTA chest PE indicates no large or central pulmonary embolism. Evaluation is limited due to suboptimal contrast bolus timing. Consider repeat exam if clinically indicated. Moderate hiatal hernia. Cardiomegaly. Hepatic steatosis. Lungs indicate no focal consolidation, pleural effusion, or pneumothorax. Atelectasis at the lung bases. Mild centrilobular emphysema Discharge Plan Discharge Clinical Impression: Acute exacerbation of chronic bronchitis, COPD exacerbation, Bilateral wheezing Patient Disposition: Home Condition: Guarded Prognosis Instructions: Antibiotic Form, Emphysema (ED), COPD (Chronic Obstructive Pulmonary Disease) (ED), Chronic Bronchitis (ED) Additional Instructions: Please return to the ER with any worsening symptoms. Follow-up with primary care provider as soon as possible. Take all regularly scheduled medications. U se your prescriptions that were prescribed to you from urgent care yesterday as directed. Patient Language: [place] Follow-up/Referrals: Matilde Xie MD [Physician] - (primary care) PHYSICIAN NOT ON STAFF,NONSTAFF [Primary Care Provider] - Time of Disposition: 01:23
[2024-09-08 21:41] LABS: Basophils Absolute Auto 0.1 K/mm3 (0.0-0.1); Eosinophils Absolute Auto 0.7 K/mm3 (0-0.3); Eosinophils Percent Auto 8.8 % (0-4.4); Hematocrit 41.4 % (42.0-52.0); Hemoglobin 13.9 g/dL (14.0-18.0); Immature Granulocyte Absolute 0.03 K/mm3 (0.00-0.031); Immature Granulocyte Percent A 0.4 % (0-0.5); Lymphocytes Absolute Auto 1.05 K/mm3 (0.9-3.2); Lymphocytes Percent Auto 12.5 % (18.3-44.2); Mean Corpuscular HGB Conc 33.6 g/dl (32-36); Mean Corpuscular Hemoglobin 30.6 pg (26-34); Mean Corpuscular Volume 91.2 fl (80-100); Mean Platelet Volume 8.8 fl (7.4-10.4); Monocytes Absolute Auto 0.9 K/mm3 (0.1-0.6); Monocytes Percent Auto 10.8 % (2.6-8.5); Neutrophils Absolute Auto 5.6 K/mm3 (1.3-6.7); Neutrophils Percent Auto 66.5 % (45.5-73.1); Platelet Count Result 354 k/mm3 (150-375); Red Blood Count 4.54 M/mm3 (4.6-6.20); Red Cell Distribution Width 14.2 % (11.5-14.5); White Blood Count 8.4 K/mm3 (4.5-10.0)
[2024-09-08] MEDS: IPRATROPIUM 0.5 MG/ALBUTEROL SULFATE 2.5 MG AMPUL.NEB 3 ML INHALATION ×3 (21:50→21:52)
[2024-09-08 21:51] LABS: Alanine Aminotransferase 23 U/L (6-50); Albumin Level 3.7 g/dL (3.5-5.1); Alkaline Phosphatase 87 U/L (38-126); Anion Gap 7 mmol/L (4-12); Aspartate Amino Transferase 32 U/L (17-59); Bilirubin,Total 0.4 mg/dL (0.2-1.3); Blood Urea Nitrogen 10 mg/dL (9-20); Calcium 8.6 mg/dL (8.4-10.2); Carbon Dioxide 24 mmol/L (22-30); Chloride 104 mmol/L (98-107); Estimated CRCL calculation 117 ml/min; Estimated Glomerular Filt Rate > 60; Glucose 149 mg/dL (65-110); Magnesium 2.1 mg/dL (1.6-2.3); Potassium 4.1 mmol/L (3.4-5.0); Sodium 135 mmol/L (137-145)
[2024-09-08 21:52] LABS: Prothrombin Time 13.3 Seconds (11.1-14.7)
[2024-09-08 21:53] LABS: Partial Thromboplastin Time 27.1 Seconds (22.3-36.8)
[2024-09-08 21:55] LABS: D Dimer 0.36 ug/mL (<0.48)
[2024-09-08 22:03] LABS: NT Pro B Type Natriuretic Pept 303 pg/mL (19.9-100); Troponin I < 0.012 ng/mL (0.000-0.034)
[2024-09-08] MEDS: methylPREDNISolone SOD SUCC 125 MG VIAL IV PUSH (22:05)
[2024-09-08] MEDS: SODIUM CHLORIDE 0.9% IV 1,000 ML 999 ML IV CONT (22:05)
[2024-09-08] MEDS: MAGNESIUM SULF 2 GM/WATER 50ML 2 GM/50 ML BAG IVPB (22:05)
[2024-09-09] VITALS (12 sets, daily range): BP systolic 95–114; BP diastolic 68–73; PULSE 88–101; RESP 13–30; O2SAT 98–100
[2024-09-09] MEDS: IPRATROPIUM 0.5 MG/ALBUTEROL SULFATE 2.5 MG AMPUL.NEB 3 ML INHALATION (01:18)
== END 2024-09-09 01:36 | disposition home or self-care (01) ==
PROVIDERS: Emergency Provider Registered Nurse
DX: J44.1 Chronic obstructive pulmonary disease with (acute) exacerbation (principal); H91.90 Unspecified hearing loss, unspecified ear; F17.290 Nicotine dependence, other tobacco product, uncomplicated; I45.10 Unspecified right bundle-branch block; R94.31 Abnormal electrocardiogram [ECG] [EKG]
CPT/HCPCS: 36415; 71045; 71275; 80053; 83605; 83735; 83880; 84484; 85025; 85380; 85610; 85730; 93005; 94640; 96365; 96375; 99284; J2919; J3475; J7030; Q9967